=== PATIENT | female | born 1940 | race Caucasian/White ===

== ENCOUNTER 2018-06-12 10:26 | Inpatient (IN) ==
[2018-06-12 11:11] LABS: Basophils % 0.5 % (0.1-2.0); Eosinophils # 0.1 K/mm3 (0.0-0.4); Eosinophils % 1.4 % (0.1-12.0); Lymphocytes % 18.7 % (10-50); Mean Corpuscular HGB Conc 30.9 g/dL (31.8-35.4); Mean Corpuscular Hemoglobin 29.8 pg (27.0-31.2); Mean Corpuscular Volume 96.3 fl (81-99); Monocytes # 0.4 K/mm3 (0.1-1.0); Monocytes % 8.1 % (1.7-9.3); Neutrophils # 3.6 K/mm3 (1.8-7.8); Neutrophils % 71.3 % (37.0-80.0); Platelet Count 180 K/mm3 (142-424); Red Cell Distribution Width 13.4 % (11.5-17.5); White Blood Count 5.1 K/mm3 (4.8-10.8)
[2018-06-12 11:18] LABS: Hematocrit 19.3 % (37.0-47.0)
--- NOTE | 2018-06-12 11:22 | Emergency Department Note ---
ED Disposition Clinical Impression: Congestive heart failure (CHF), Varicose veins of bilateral lower extremities with other complications, Medication adverse effect, Non-compliant behavior, Anemia Disposition: Still a Patient Condition on Discharge: Fair Referrals: Abraham Redding [Primary Care Provider] - - Critical Care Critical Care Time: No Attestation: On 06/12/18, the high probability of a clinically significant, sudden or life threatening deterioration of the following system(s) required my full and direct attention, intervention and personal management. The time I documented below is in addition to time spent performing reported procedures but includes the following listed in this critical care notation. Medical Decision Making - Samuel Inquiry Pt receiving controlled substance: No Samuel was queried for this patient: No Vital Signs: 06/12/18 10:57 Temperature 99.2 F Temperature Source Oral Pulse Rate [Left Radial] 61 Respiratory Rate 20 Blood Pressure [Right Arm] 121/48 L Blood Pressure Mean [Right Arm] 72 Blood Pressure Source [Right Arm] Automatic Cuff Blood Pressure Position [Right Arm] Sitting 02 Sat by Pulse Oximetry 99 Oxygen Delivery Method Nasal Cannula Oxygen Flow Rate (LPM) 2 - Lab Data Lab Results 06/12/18 10:57: WBC 5.1, RBC 2.00 L, Hgb 6.0 L*, Hct 19.3 L*, MCV 96.3, MCH 29.8, MCHC 30.9 L, RDW 13.4, Plt Count 180, MPV 9.0, Neut % (Auto) 71.3, Lymph % (Auto) 18.7, [place] % (Auto) 8.1, Eos % (Auto) 1.4, Baso % (Auto) 0.5, Neut # (Auto) 3.6, Lymph # (Auto) 1.0, [place] # (Auto) 0.4, Eos # (Auto) 0.1, Baso # (Auto) 0.0 06/12/18 10:57: Sodium 140, Potassium 5.2 H, Chloride 105, Carbon Dioxide 31, Anion Gap 9.2, BUN 43 H, Creatinine 1.50 H, Estimated Creat Clear 43, Estimated GFR 33 L, Est GFR ( Amer) 40 L, Glucose 180 H, Calcium 8.2 L, Troponin I 0.02 06/12/18 10:57: Lactate 0.3 L 06/12/18 10:57: B-Natriuretic Peptide 366 H 06/12/18 10:57: PT 10.6, INR 1.03, APTT 28.9 Result diagrams: 06/12/18 10:57 06/12/18 10:57 Orders (Tests/Meds): ED MEDICATIONS Discontinued Medications Generic Name Dose Route Start Last Admin Trade Name Natalie PRN Reason Stop Dose Admin Furosemide 40 mg 06/12/18 11:13 06/12/18 11:16 Lasix 40mg/4ml Vial IV 06/12/18 11:14 40 mg ONCE ONE Administration ORDERS Category Date Time Status Blood Culture Stat Micro 06/12/18 10:57 Received - Radiology Data #1 Image(s): Chest Preliminary Findings: Abnormal IMPRESSION...... prominent cardiomegaly with left ventricular configuration. . No pleural effusion. No overt CHF. Coarsening markings toward lung bases most likely reflecting chronic changes.. Nothing definitely acute. Difficult to exclude a subtle infiltrate towards right lung base but favor chronic changes here. Areas of linear scarring/atelectasis along left heart border and at right costophrenic cardiophrenic angle I believe stable since a previous AP view of the chest from 03/01/2018 AP view C-spine. Medical Decision Narrative: Discussed with the family the patient's supposed to be on a low-sodium diet. Later on her hemoglobin was 6. I spoke with the on-call medical physician Dr. Ceron who agreed to admit the patient for diuresis and and blood transfusion. She remained hemodynamically neurologically stable. General Adult HPI - General Chief complaint: Shortness of Breath/Dyspnea Stated complaint: SOA, Veins on r foot bleeding out Time Seen by Provider: 06/12/18 11:00 Mode of Arrival: Family Vehicle Limitations: No Limitations Description of Symptoms (Recalled from ER Triage Doc. by RN): Pt states that she has been having some SOA, denies any cough or chest pain although when she lays down she feels SOA more with some mucus in her throat. Some concern with with bleeding on her right foot - History of Present Illness HPI narrative: 78 years old white female with history of diastolic dysfunction congestive heart failure and venous stasis. She is from [facility] and currently visiting her daughter in [facility]. She has a follow-up appointment with her primary care physician in June 2018. During the holidays she has been enjoying herself and ate a lot of salty foods and dill pickles. For the past week she has been experiencing progressive orthopnea without chest pain or palpitations. It is worse laying down and better sitting up. She had intermittent bleeding from her venous stasis. She does have lower extremity edema. Patient has controlled bleeding from the right foot varicosities. She did not take her is alerted today. Onset (ago): week(s) (one week.) Location: chest Radiation: non-radiation Severity: mild Consistency: constant Treatments prior to arrival: other (Patient is on xalerto. ) - Related Data Home Medications Medication Instructions Recorded Confirmed Albuterol Sulfate [Proair Hfa 2 puffs IH DAILY 06/12/18 06/12/18 90mcg/puff Inh] Cyanocobalamin/Folic AC/Vit B6 1 each PO DAILY 06/12/18 06/12/18 [Folbic Tablet] Desvenlafaxine [Desvenlafaxine ER] 100 mg PO DAILY 06/12/18 06/12/18 Furosemide [Furosemide 40MG tAB] 40 mg PO DAILY 06/12/18 06/12/18 Insulin Aspart [Novolog Flexpen] 100 unit SQ DAILY 06/12/18 06/12/18 Levocetirizine Dihydrochloride 5 tab PO DAILY 06/12/18 06/12/18 Losartan Potassium 25 mg PO DAILY 06/12/18 06/12/18 Metoprolol Succinate 25 mg PO DAILY 06/12/18 06/12/18 Mirtazapine [Remeron 15mg tablet] 15 mg PO DAILY 06/12/18 06/12/18 Montelukast Sodium [Montelukast 10 mg PO DAILY 06/12/18 06/12/18 10mg Tab] Pramipexole Di-HCl [Pramipexole 1.5 mg PO DAILY 06/12/18 06/12/18 Dihydrochloride] Pregabalin [Pregabalin 25mg 25 mg PO DAILY 06/12/18 06/12/18 Capsule] Rivaroxaban [Xarelto 20mg Tablet] 20 mg PO DAILY 06/12/18 06/12/18 Sitagliptin Phosphate [Januvia 100 mg PO DAILY 06/12/18 06/12/18 100mg tablet] Spironolactone 25 mg PO DAILY 06/12/18 06/12/18 buPROPion HCl [Wellbutrin SR 150mg 150 mg PO DAILY 06/12/18 06/12/18 Tablet] clonazePAM [Clonazepam] 1 mg PO DAILY 06/12/18 06/12/18 lamoTRIgine [Lamotrigine] 25 tab PO DAILY 06/12/18 06/12/18 raNITIdine HCl [Ranitidine HCl] 300 mg PO DAILY 06/12/18 06/12/18 Allergies Allergy/AdvReac Type Severity Reaction Status Date / Time hydrochlorothiazide Allergy Verified 03/01/18 19:25 Iodinated Contrast Media - Allergy Verified 03/01/18 19:25 Oral and Sulfa (Sulfonamide Allergy Verified 03/01/18 19:25 Antibiotics) [facility] History - Hepatitis A Screen Drug use history?: No High risk sexual behaviors?: No History of sexually transmitted infection?: No Currently employed?: No Childcare worker?: No Do you have indoor plumbing?: Yes Do you have electricity?: Yes Attestation statement:: This patient has been screened for Hepatitis A risk factors. I have reviewed the patient's past medical history: Yes Medical History: Reports:: Anxiety, Congestive Heart Failure, Depression, Diabetes Mellitus Type 2, Gastroesophageal Reflux Disease(GERD), Hyperlipidemia, Hypertension Denies:: Cancer, Diabetes Mellitus Type 1, MRSA Other Medical History: Reports: Other (neuropathy, allergies) Laterality Cases: Right: Arthroscopy Knee Other Surgeries: Yes: Cholecystectomy, Hernia Repair (x2) Amputation: No Fractures: No - Social History Smoking Status: Never smoker Alcohol Intake: never - Psychiatric History Expresses thoughts of harming self/others: None Suicide Plan Description: No Plan Pschychiatric History:: Reports:: Anxiety, Depression ROS Obtained: Yes All systems reviewed & no additional complaints Physical Exam - General General appearance: alert, in no apparent distress - Head Head exam: atraumatic, normocephalic, normal inspection - Eye Eye exam: Present: normal appearance, PERRL, EOMI. Absent: scleral icterus, nystagmus - ENT ENT exam: Present: normal exam, normal oropharynx, mucous membranes moist, TM's normal bilaterally, normal external ear exam - Neck Neck exam: Present: normal inspection, full ROM, trachea midline. Absent: tenderness, meningismus, lymphadenopathy - Chest Chest inspection: Present: normal inspection, symmetric chest wall rise. Absen t: tenderness - Respiratory Respiratory exam: Present: normal lung sounds bilaterally. Absent: respiratory distress, wheezes - Cardiovascular Cardiovascular exam: Present: regular rate, normal rhythm, normal heart sounds. Absent: JVD - Abdominal Exam Abdominal exam: Present: soft, normal bowel sounds. Absent: distention, tenderness, guarding, rebound, rigidity - External exam: Present: normal external exam - Extremities Exam Extremities exam: Present: normal inspection, full ROM, normal capillary refill, pedal edema (1+ edema of the lower extremity extensive varicosities on the dorsum of the feet.), other (Extensive varicosities in the dorsum of the right foot with controlled bleeding. ). Absent: calf tenderness - Back Exam Back exam: Present: normal inspection. Absent: tenderness, CVA tenderness (R), CVA tenderness (L), paraspinal tenderness, vertebral tenderness - Neurological Exam Neurological exam: Present: alert, oriented X3, CN II-XII intact, motor sensory deficit, reflexes normal - Psychiatric Psychiatric exam: Present: normal affect, normal mood - Skin Skin exam: Present: warm, dry, intact, normal color - Lymphatic Lymphatic Findings: no adenopathy
[2018-06-12 11:23] LABS: Anion Gap 9.2 mEq/L (5-15); Calcium 8.2 mg/dL (8.5-10.1); Potassium 5.2 mmoL/L (3.5-5.1)
[2018-06-12 11:47] LABS: Activated Partial Thrombo Time 28.9 seconds (23.6-34.0); INR 1.03 (0.9-1.1); Prothrombin Time 10.6 seconds (9.4-11.8)
[2018-06-12 13:54] LABS: Microscopic, Urine URINE MICROSCOPIC (MICROSCOPIC)
[2018-06-12 13:55] LABS: Appearance,Urine CLEAR (Clear); Bilirubin,Urine Negative (Negative); Blood, Urine Negative (Negative); Color,Urine YELLOW (Yellow); Glucose,Urine (UA) Negative (Negative); Ketones,Urine Negative (Negative); Leukocyte Esterase,Urine Negative (Negative); PH,Urine 5.5 (5.0-8.5); Protein,Urine Negative (Negative); Specific Gravity, Urine 1.015 (1.005-1.030); Urobilinogen,Urine 0.2 EU/dl (0.2)
[2018-06-12 14:03] LABS: Bacteria,Urine Trace /lpf; Squamous Epithelial Cell,Urine Occasional #/hpf (0-5); WBC,Urine Occasional #/hpf (0-3)
--- NOTE | 2018-06-12 14:49 | History & Physical Report ---
*Admission Date: 06/12/18 *Chief complaint: symptomatic anemia *History of present illness: Ms. Suarez is an 78-year-old female with multiple comorbidities who presents with some somatic anemia and CHF exacerbation to the emergency room today. She reports for the past 3 weeks she has been having bleeding from varicosities in her right foot and has seen multiple providers previously for this. No one has intervened or offered significant therapeutic options other than compression legging that she wears for an hour a day. She is on Xarelto for heart failure and remote history of blood clots. Anemia with a hemoglobin of 6 upon arrival to the ER. Complains of shortness of breath and increased low er extremity edema that was not responsive to an increase in her baseline diuretic usage. Family is at bedside with her to give more extensive history. Follows with a primary care at [facility]. Patient denies any fevers, nausea vomiting, hematemesis or hematochezia. No history of melenic stools. Remained hemodynamically stable. [facility] History I have reviewed the patient's past medical history: Yes Medical History: Reports:: Anxiety, Congestive Heart Failure, Depression, Diabetes Mellitus Type 2, Gastroesophageal Reflux Disease(GERD), Hyperlipidemia, Hypertension Denies:: Cancer, Diabetes Mellitus Type 1, MRSA Other Medical History: Reports: Other (neuropathy, allergies) Laterality Cases: Right: Arthroscopy Knee Other Surgeries: Yes: Cholecystectomy, Hernia Repair (x2) Amputation: No Fractures: No - *Social History Smoking Status: Never smoker Alcohol Intake: never - Psychiatric History Expresses thoughts of harming self/others: None Suicide Plan Description: No Plan Pschychiatric History:: Reports:: Anxiety, Depression Review of Systems - Review of Systems Review of systems:: pertinent systems reviewed and negative unless documented below Meds Home Medications Medication Instructions Recorded Confirmed Type Albuterol Sulfate [Proair Hfa 2 puffs IH DAILY 06/12/18 06/12/18 History 90mcg/puff Inh] Cyanocobalamin/Folic AC/Vit B6 1 each PO DAILY 06/12/18 06/12/18 History [Folbic Tablet] Desvenlafaxine [Desvenlafaxine ER] 100 mg PO DAILY 06/12/18 06/12/18 History Furosemide [Furosemide 40MG tAB] 40 mg PO DAILY 06/12/18 06/12/18 History Insulin Aspart [Novolog Flexpen] 100 unit SQ DAILY 06/12/18 06/12/18 History Levocetirizine Dihydrochloride 5 tab PO DAILY 06/12/18 06/12/18 History Losartan Potassium 25 mg PO DAILY 06/12/18 06/12/18 History Metoprolol Succinate 25 mg PO DAILY 06/12/18 06/12/18 History Mirtazapine [Remeron 15mg tablet] 15 mg PO DAILY 06/12/18 06/12/18 History Montelukast Sodium [Montelukast 10 mg PO DAILY 06/12/18 06/12/18 History 10mg Tab] Pramipexole Di-HCl [Pramipexole 1.5 mg PO DAILY 06/12/18 06/12/18 History Dihydrochloride] Pregabalin [Pregabalin 25mg 175 mg PO DAILY 06/12/18 06/12/18 History Capsule] Rivaroxaban [Xarelto 20mg Tablet] 20 mg PO DAILY 06/12/18 06/12/18 History Sitagliptin Phosphate [Januvia 100 mg PO DAILY 06/12/18 06/12/18 History 100mg tablet] Spironolactone 25 mg PO DAILY 06/12/18 06/12/18 History buPROPion HCl [Wellbutrin SR 150mg 150 mg PO DAILY 06/12/18 06/12/18 History Tablet] clonazePAM [Clonazepam] 0.5 mg PO DAILY 06/12/18 06/12/18 History clonazePAM [Clonazepam] 1 mg PO HS 06/12/18 06/12/18 History lamoTRIgine [Lamotrigine] 25 tab PO DAILY 06/12/18 06/12/18 History raNITIdine HCl [Ranitidine HCl] 300 mg PO DAILY 06/12/18 06/12/18 History Allergies Allergy/AdvReac Type Severity Reaction Status Date / Time hydrochlorothiazide Allergy Verified 03/01/18 19:25 Iodinated Contrast Media - Allergy Verified 03/01/18 19:25 Oral and Sulfa (Sulfonamide Allergy Verified 03/01/18 19:25 Antibiotics) Exam Vital signs and Labs for Last 24 Hours: Temp Pulse Resp BP Pulse Ox 97.4 F L 69 18 107/50 L 97 06/12/18 14:29 06/12/18 14:29 06/12/18 14:29 06/12/18 14:29 06/12/18 14:29 Laboratory Results - last 24 hr 06/12/18 10:57: WBC 5.1, RBC 2.00 L, Hgb 6.0 L*, Hct 19.3 L*, MCV 96.3, MCH 29.8, MCHC 30.9 L, RDW 13.4, Plt Count 180, MPV 9.0, Neut % (Auto) 71.3, Lymph % (Auto) 18.7, [place] % (Auto) 8.1, Eos % (Auto) 1.4, Baso % (Auto) 0.5, Neut # (Auto) 3.6, Lymph # (Auto) 1.0, [place] # (Auto) 0.4, Eos # (Auto) 0.1, Baso # (Auto) 0.0 06/12/18 10:57: Sodium 140, Potassium 5.2 H, Chloride 105, Carbon Dioxide 31, Anion Gap 9.2, BUN 43 H, Creatinine 1.50 H, Estimated Creat Clear 43, Estimated GFR 33 L, Est GFR ( Amer) 40 L, Glucose 180 H, Calcium 8.2 L, Troponin I 0.02 06/12/18 10:57: Lactate 0.3 L 06/12/18 10:57: B-Natriuretic Peptide 366 H 06/12/18 10:57: PT 10.6, INR 1.03, APTT 28.9 06/12/18 11:33: Urine Color Yellow, Urine Appearance Clear, Urine pH 5.5, Ur Specific Flushing 1.015, Urine Protein Negative, Urine Glucose (UA) Negative, Urine Ketones Negative, Urine Blood Negative, Urine Nitrate Negative, Urine Bilirubin Negative, Urine Urobilinogen 0.2, Ur Leukocyte Esterase Negative, Urine WBC Occasional, Ur Squamous Epith Cells Occasional, Urine Bacteria Trace 06/12/18 14:02: Blood Type O Positive, Crossmatch (AHG) See Detail I & O for Last 24 hours: Intake & Output 06/09/18 06/10/18 06/11/18 06/12/18 23:59 23:59 23:59 23:59 Weight 97.522 kg - Constitutional mild distress Comments: Elderly - *Routine HEENT Exam Head: Present: normocephalic, atraumatic Eye: Present: EOMI, PERRL ENT: Present: mucous membranes moist - *Routine Neck Exam Present: supple. Absent: JVD - *Routine Respiratory Exam Absent: prolonged expiratory phase Comments: 5 bibasilar crackles, no wheeze - *Routine Cardiovascular Exam Comments: Distant heart sounds, - *Routine Abdominal Exam Present: soft, normoactive bowel sounds. Absent: tenderness - *Routine Rectal Exam Patient deferred: visual exam - *Routine Exam Patient deferred: external exam - *Routine Extremities Exam Present: edema. Absent: cyanosis, clubbing Comments: Significant varicosities on dorsum of right foot. Multiple locations of ruptured varicose veins with previous bleeding now currently scabbed with fresh clot. Chronic venous stasis dermatitis changes - *Routine Skin Exam Present: intact. Absent: cyanosis, erythema - *Routine Neurological Exam Present: alert, oriented X3. Absent: altered mental status Assessment and Plan (1) Anemia Current visit: Yes Status: Acute Qualifiers: Anemia type: unspecified type Qualified Code(s): D64.9 - Anemia, unspecified Category: Medical Code(s): D64.9 - Anemia, unspecified Likely acute blood loss anemia due to bleeding. Per family patient has a history of hemochromatosis but has not had phlebotomy in quite some time Typed and crossed, transfused 2 units. Assess hemoglobin 1 hour after completion of second unit. Repeat lab work in the morning. If stable, will likely discharge home (2) Congestive heart failure (CHF) Current visit: Yes Status: Acute Category: Medical Code(s): I50.9 - Heart failure, unspecified Given diuretic in the ER. -Continue to monitor output -Oxygen as needed with goal sat greater than 92 while awake, greater than 88 while asleep (3) Varicose veins of bilateral lower extremities with other complications Current visit: Yes Status: Acute Category: Medical Code(s): I83.893 - Varicose veins of bilateral lower extremities with other complications Likely source of patient's anemia given the bleeding 5 times over the past 3 weeks from the right foot. Will place compression wraps on legs.
[2018-06-13 00:04] LABS: Hematocrit 23.7 % (37.0-47.0)
[2018-06-13 00:24] LABS: Hemoglobin 7.3 g/dL (12.2-16.2)
[2018-06-13 06:45] LABS: Basophils % 0.3 % (0.1-2.0); Eosinophils # 0.1 K/mm3 (0.0-0.4); Eosinophils % 1.5 % (0.1-12.0); Lymphocytes % 21.1 % (10-50); Mean Corpuscular HGB Conc 31.9 g/dL (31.8-35.4); Mean Corpuscular Hemoglobin 30.1 pg (27.0-31.2); Mean Corpuscular Volume 94.3 fl (81-99); Monocytes # 0.4 K/mm3 (0.1-1.0); Monocytes % 9.3 % (1.7-9.3); Neutrophils # 3.1 K/mm3 (1.8-7.8); Neutrophils % 67.8 % (37.0-80.0); Platelet Count 150 K/mm3 (142-424); Red Cell Distribution Width 13.2 % (11.5-17.5); White Blood Count 4.6 K/mm3 (4.8-10.8)
[2018-06-13 06:49] LABS: Hematocrit 22.6 % (37.0-47.0); Hemoglobin 7.2 g/dL (12.2-16.2)
[2018-06-13 06:56] LABS: Anion Gap 4.5 mEq/L (5-15); Calcium 8.2 mg/dL (8.5-10.1); Potassium 4.5 mmoL/L (3.5-5.1)
--- NOTE | 2018-06-13 13:38 | Pharmacy Consult Notes ---
[facility] Pharmacy VTE Monitoring - Patient Demographics Admission date: 06/12/18 Report Date: 06/13/18 Time: 13:38 Allergies/Adverse Reactions: Patient Allergies hydrochlorothiazide Allergy (Verified 03/01/18 19:25) Iodinated Contrast Media - Oral and Allergy (Verified 03/01/18 19:25) Sulfa (Sulfonamide Antibiotics) Allergy (Verified 03/01/18 19:25) Height: 1.63 m Weight: 98.883 kg Patient Problems: Current Active Problems Congestive heart failure (CHF) (Acute) Varicose veins of bilateral lower extremities with other complications (Acute) Medication adverse effect (Acute) Non-compliant behavior (Acute) Anemia (Acute) - VTE Risk Labs: VTE Related Lab Results Hgb 7.2 g/dL (12.2-16.2) L* 06/13/18 06:26 Hct 22.6 % (37.0-47.0) L* 06/13/18 06:26 Plt Count 150 K/mm3 (142-424) 06/13/18 06:26 PT 10.6 seconds (9.4-11.8) 06/12/18 10:57 INR 1.03 (0.9-1.1) 06/12/18 10:57 APTT 28.9 seconds (23.6-34.0) 06/12/18 10:57 BUN 36 mg/dL (7-18) H 06/13/18 06:26 Creatinine 1.37 mg/dL (0.55-1.02) H 06/13/18 06:26 Estimated Creat Clear 51 mL/min (50-200) 06/13/18 06:26 Was VTE Risk Assessment Performed: Yes VTE Score: 4 VTE Risk Level: Low Risk - Prophylaxis VTE Prophylaxis Ordered?: Yes Types of VTE Prophylaxis: TEDS Knee High Location of Applied Device: Bilateral Lower Extremeties
--- NOTE | 2018-06-13 14:00 | Discharge Summary ---
General - General Admission date:: 06/12/18 Discharge date: 06/13/18 HPI HPI: Ms. Suarez is an 78-year-old female with multiple comorbidities who presents with some somatic anemia and CHF exacerbation to the emergency room today. She reports for the past 3 weeks she has been having bleeding from varicosities in her right foot and has seen multiple providers previously for this. No one has intervened or offered significant therapeutic options other than compression legging that she wears for an hour a day. She is on Xarelto for heart failure and remote history of blood clots. Anemia with a hemoglobin of 6 upon arrival to the ER. Complains of shortness of breath and increased lower extremity edema that was not responsive to an increase in her baseline diuretic usage. Family is at bedside with her to give more extensive history. Follows with a primary care at [facility]. Patient denies any fevers, nausea vomiting, hematemesis or hematochezia. No history of melenic stools. Remained hemodynamically stable. Hospital Course Hospital Course: Patient admitted due to symptomatic anemia from blood loss in her foot and CHF exacerbation. Treated with diuretics and had brisk diuresis and was -2.5 L during her hospitalization. Additionally held her Xarelto with cessation of further bleeding from her foot. Compression wraps were placed on bilateral feet to help decrease risk for further bleeding from her varicosities. Due to her anemia of 6, patient was transfused 3 units over the course of her stay. She responded well with a hemoglobin greater than 8 at time of discharge. Additionally patient was noted to have lower blood pressures with systolics in the 90s after taking her losartan. This was stopped at discharge due to concern for it causing hypotension. Recommend patient discuss with her primary care the use of a daily baby aspirin as primary prophylaxis for blood clots or heart failure as it is actually unclear the initial reason her Xarelto was started. However in the setting of significant blood loss likely due to her varicosities and Xarelto use, the risk of use outweighs the benefit it would provide in an 78-year-old individual. Patient remained hemodynamically stable at baseline oxygen. Stable for discharge home with plan to follow-up later this week with her primary care already scheduled Objective Vital signs: Temp Pulse Resp BP Pulse Ox 8.0 F L 69 16 93/53 L 96 06/13/18 13:40 06/13/18 13:40 06/13/18 13:40 06/13/18 13:40 06/13/18 13:40 Narrative: - Constitutional No acute distress, Elderly - *Routine HEENT Exam Head: Present: normocephalic, atraumatic Eye: Present: EOMI, PERRL ENT: Present: mucous membranes moist - *Routine Neck Exam Present: supple. Absent: JVD - *Routine Respiratory Exam Absent: prolonged expiratory phase Comments: 5 bibasilar crackles, no wheeze - *Routine Cardiovascular Exam Comments: Distant heart sounds, - *Routine Abdominal Exam Present: soft, normoactive bowel sounds. Absent: tenderness - *Routine Rectal Exam Patient deferred: visual exam - *Routine Exam Patient deferred: external exam - *Routine Extremities Exam Present: edema. Absent: cyanosis, clubbing Comments: Significant varicosities on dorsum of right foot. Multiple locations of ruptured varicose veins with previous bleeding now currently scabbed. Chronic venous stasis dermatitis changes - *Routine Skin Exam Present: intact. Absent: cyanosis, erythema - *Routine Neurological Exam Present: alert, oriented X3. Absent: altered mental status Results Labs on day of discharge: Labs from last 24 hours 06/13/18 06/13/18 06/13/18 11:53 06:26 06:26 WBC 4.6 L RBC 2.40 L Hgb 7.2 L* Hct 22.6 L* MCV 94.3 MCH 30.1 MCHC 31.9 RDW 13.2 Plt Count 150 MPV 9.0 Neut % (Auto) 67.8 Lymph % (Auto) 21.1 Stanley % (Auto) 9.3 Eos % (Auto) 1.5 Baso % (Auto) 0.3 Neut # (Auto) 3.1 Lymph # (Auto) 1.0 Stanley # (Auto) 0.4 Eos # (Auto) 0.1 Baso # (Auto) 0.0 Sodium 140 Potassium 4.5 Chloride 104 Carbon Dioxide 36 H Anion Gap 4.5 L BUN 36 H Creatinine 1.37 H Estimated Creat Clear 51 Estimated GFR 37 L Est GFR ( Amer) 45 L Glucose 120 H D POC Glucose 204 H Calcium 8.2 L Troponin I Urine Color Urine Appearance Urine pH Ur Specific [place] Urine Protein Urine Glucose (UA) Urine Ketones Urine Blood Urine Nitrate Urine Bilirubin Urine Urobilinogen Ur Leukocyte Esterase Urine WBC Ur Squamous Epith Cells Urine Bacteria Blood Type Blood Type Confirm Antibody Screen Crossmatch ([facility]) 06/13/18 06/12/18 06/12/18 05:19 23:50 20:29 WBC RBC Hgb 7.3 L* D Hct 23.7 L* MCV MCH MCHC RDW Plt Count MPV Neut % (Auto) Lymph % (Auto) Stanley % (Auto) Eos % (Auto) Baso % (Auto) Neut # (Auto) Lymph # (Auto) Stanley # (Auto) Eos # (Auto) Baso # (Auto) Sodium Potassium Chloride Carbon Dioxide Anion Gap BUN Creatinine Estimated Creat Clear Estimated GFR Est GFR ( Amer) Glucose POC Glucose 135 H 357 H* Calcium Troponin I Urine Color Urine Appearance Urine pH Ur Specific [place] Urine Protein Urine Glucose (UA) Urine Ketones Urine Blood Urine Nitrate Urine Bilirubin Urine Urobilinogen Ur Leukocyte Esterase Urine WBC Ur Squamous Epith Cells Urine Bacteria Blood Type Blood Type Confirm Antibody Screen Crossmatch ([facility]) 06/12/18 06/12/18 06/12/18 18:55 16:27 15:18 WBC RBC Hgb Hct MCV MCH MCHC RDW Plt Count MPV Neut % (Auto) Lymph % (Auto) Stanley % (Auto) Eos % (Auto) Baso % (Auto) Neut # (Auto) Lymph # (Auto) Stanley # (Auto) Eos # (Auto) Baso # (Auto) Sodium Potassium Chloride Carbon Dioxide Anion Gap BUN Creatinine Estimated Creat Clear Estimated GFR Est GFR ( Amer) Glucose POC Glucose 275 H Calcium Troponin I < 0.02 < 0.02 Urine Color Urine Appearance Urine pH Ur Specific [place] Urine Protein Urine Glucose (UA) Urine Ketones Urine Blood Urine Nitrate Urine Bilirubin Urine Urobilinogen Ur Leukocyte Esterase Urine WBC Ur Squamous Epith Cells Urine Bacteria Blood Type Blood Type Confirm Antibody Screen Crossmatch ([facility]) 06/12/18 06/12/18 06/12/18 14:33 14:02 11:33 WBC RBC Hgb Hct MCV MCH MCHC RDW Plt Count MPV Neut % (Auto) Lymph % (Auto) Stanley % (Auto) Eos % (Auto) Baso % (Auto) Neut # (Auto) Lymph # (Auto) Stanley # (Auto) Eos # (Auto) Baso # (Auto) Sodium Potassium Chloride Carbon Dioxide Anion Gap BUN Creatinine Estimated Creat Clear Estimated GFR Est GFR ( Amer) Glucose POC Glucose Calcium Troponin I Urine Color Yellow Urine Appearance Clear Urine pH 5.5 Ur Specific [place] 1.015 Urine Protein Negative Urine Glucose (UA) Negative Urine Ketones Negative Urine Blood Negative Urine Nitrate Negative Urine Bilirubin Negative Urine Urobilinogen 0.2 Ur Leukocyte Esterase Negative Urine WBC Occasional Ur Squamous Epith Cells Occasional Urine Bacteria Trace Blood Type O Positive Blood Type Confirm O Positive Antibody Screen Negative Crossmatch ([facility]) See Detail DS: Diagnosis - Discharge Diagnosis (1) Anemia Status: Acute Problem details: Acute due to blood loss. Patient's [id number]- VASc score of 7, stroke risk 11-15% per year. However she does not have a history that we know of of atrial fibrillation. HAS-BLED of 2, 4% giving moderate risk of major bleed, as evidenced by significant blood loss from her varicosities in her feet. In the setting that her varicosities are inoperable and causing such blood loss, no reported history of atrial fibrillation, do not feel anticoagulation with Xarelto outweighs the risk. 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 (2) Congestive heart failure (CHF) Status: Acute Problem details: Continued home treatment, held ARB in the setting of hypotension documented after its administration (3) Varicose veins of bilateral lower extremities with other complications Status: Acute Problem details: Likely source of patient's bleeding and anemia Discharge Plan - Patient Discharge Instructions ACTIVITY: Continue current activity DIET: continue same diet Patient Instructions: Anemia, DI for Heart Failure, DI for Varicose Veins - Follow up Plan Follow up with: Provider,Referral, [Referring] - Disposition: Home, Self-Correction Medications: Home Medications Medication Instructions Recorded Confirmed Type Albuterol Sulfate [Proair Hfa 2 puffs IH Q4-6H PRN 06/12/18 06/12/18 History 90mcg/puff Inh] Cyanocobalamin/Folic AC/Vit B6 1 each PO DAILY 06/12/18 06/12/18 History [Folbic Tablet] Furosemide [Furosemide 40MG tAB] 40 mg PO DAILY 06/12/18 06/12/18 History Insulin Aspart [Novolog Flexpen] 100 unit SQ DAILY 06/12/18 06/12/18 History Levocetirizine Dihydrochloride 5 mg PO DAILY 06/12/18 06/12/18 History Losartan Potassium 25 mg PO DAILY 06/12/18 06/12/18 History Metoprolol Succinate 25 mg PO DAILY 06/12/18 06/12/18 History Mirtazapine [Remeron 15mg tablet] 15 mg PO DAILY 06/12/18 06/12/18 History Montelukast Sodium [Montelukast 10 mg PO DAILY 06/12/18 06/12/18 History 10mg Tab] Pramipexole Di-HCl [Pramipexole 1.5 mg PO DAILY 06/12/18 06/12/18 History Dihydrochloride] Pregabalin [Pregabalin 25mg 175 mg PO DAILY 06/12/18 06/12/18 History Capsule] Rivaroxaban [Xarelto 20mg Tablet] 20 mg PO DAILY 06/12/18 06/12/18 History Sitagliptin Phosphate [Januvia 100 mg PO DAILY 06/12/18 06/12/18 History 100mg tablet] Spironolactone 25 mg PO DAILY 06/12/18 06/12/18 History buPROPion HCl [Wellbutrin SR 150mg 150 mg PO DAILY 06/12/18 06/12/18 History Tablet] clonazePAM [Clonazepam] 0.5 mg PO DAILY 06/12/18 06/12/18 History clonazePAM [Clonazepam] 1 mg PO HS 06/12/18 06/12/18 History lamoTRIgine [Lamotrigine] 25 mg PO DAILY 06/12/18 06/12/18 History raNITIdine HCl [Ranitidine HCl] 300 mg PO DAILY 06/12/18 06/12/18 History Prescriptions/Medication Reconciliation: Continue Sitagliptin Phosphate [Januvia 100mg tablet] 100 mg PO DAILY raNITIdine HCl [Ranitidine HCl] 300 mg PO DAILY Pregabalin [Pregabalin 25mg Capsule] 175 mg PO DAILY Pramipexole Di-HCl [Pramipexole Dihydrochloride] 1.5 mg PO DAILY Montelukast Sodium [Montelukast 10mg Tab] 10 mg PO DAILY Mirtazapine [Remeron 15mg tablet] 15 mg PO DAILY Metoprolol Succinate 25 mg PO DAILY Levocetirizine Dihydrochloride 5 mg PO DAILY lamoTRIgine [Lamotrigine] 25 mg PO DAILY Insulin Aspart [Novolog Flexpen] 100 unit SQ DAILY clonazePAM [Clonazepam] 0.5 mg PO DAILY buPROPion HCl [Wellbutrin SR 150mg Tablet] 150 mg PO DAILY Albuterol Sulfate [Proair Hfa 90mcg/puff Inh] 2 puffs IH Q4-6H PRN PRN Reason: Shortness Of Breath Furosemide [Furosemide 40MG tAB] 40 mg PO DAILY Spironolactone 25 mg PO DAILY Cyanocobalamin/Folic AC/Vit B6 [Folbic Tablet] 1 each PO DAILY clonazePAM [Clonazepam] 1 mg PO HS Discontinued Rivaroxaban [Xarelto 20mg Tablet] 20 mg PO DAILY Losartan Potassium 25 mg PO DAILY
[2018-06-13 15:06] LABS: Hemoglobin 8.8 g/dL (12.2-16.2)
[2018-06-13 15:07] LABS: Hematocrit 27.2 % (37.0-47.0)
== END 2018-06-13 16:59 | disposition home or self-care (01) | DRG 299 ==
LOC: ER 10:26 → 2ND 10:26 → OBSVTOIN 13:12 → 2ND 13:57
PROVIDERS: ADMIT Internal Medicine Adolescent Medicine; ATTEND Internal Medicine Adolescent Medicine
CPT/HCPCS: 36415; 71010; 71045; 80048; 81001; 82962; 83605; 83880; 84484; 85014; 85018; 85025; 85610; 85730; 86850; 87040; 96374; 99284; P9016

== ENCOUNTER 2020-02-20 21:55 | Emergency (ER) | payer MEDICARE, OTHER, SELFPAY ==
[2020-02-20 21:56] VITALS: BP 113/50; PULSE 58; RESP 16; TEMP 36.9; O2SAT 96; BMI 35.6
--- NOTE | 2020-02-20 22:45 | HMH.EDGENADL ---
ED Disposition Clinical Impression: Adverse reaction to drug Qualifiers: Encounter type: initial encounter Qualified Code(s): T50.905A - Adverse effect of unspecified drugs, medicaments and biological substances, initial encounter Disposition: Home, Self-Care Condition on Discharge: Good Instructions: DI for Rash Additional Instructions: Follow-up with your primary care doctor in the next 48 to 72 hours to reassess your rash and symptoms. Continue taking your on antibiotics that was prescribed to you. Please get a BMP with your primary care doctor to assess for your kidney function. Return if symptoms worsen, you develop a fever, or have any other questions or concerns regarding your condition. Prescriptions: Hydrocortisone [Hydrocortisone 1% Cream 30gm Tube] 2 gm TP BID 7 Days #28.4 tube Prescription Printed Referrals: Abraham Redding [Primary Care Provider] - Octavia Monroy MD [Referring] - - Critical Care Critical Care Time: No Attestation: On 02/20/20, the high probability of a clinically significant, sudden or life threatening deterioration of the following system(s) required my full and direct attention, intervention and personal management. The time I documented below is in addition to time spent performing reported procedures but includes the following listed in this critical care notation. Medical Decision Making - Samuel Inquiry Pt receiving controlled substance: No Vital Signs: 02/20/20 21:56 02/20/20 22:56 Temperature 98.4 F Temperature Source Oral Pulse Rate [Left Radial] 58 L 56 L Respiratory Rate 16 16 Blood Pressure [Right Arm] 113/50 L 130/54 L Blood Pressure Mean [Right Arm] 71 79 Blood Pressure Source [Right Arm] Automatic Cuff Automatic Cuff Blood Pressure Position [Right Arm] Sitting Sitting 02 Sat by Pulse Oximetry 96 96 Oxygen Delivery Method Nasal Cannula Nasal Cannula Oxygen Flow Rate (LPM) 2 2 - Lab Data Lab Results 02/20/20 23:02: WBC 5.6, RBC 3.82 L, Hgb 11.0 L, Hct 34.4 L, MCV 89.9, MCH 28.8, MCHC 32.0, RDW 16.7, Plt Count 161, MPV 9.9, Neut % (Auto) 63.6, Lymph % (Auto) 14.8, Stark % (Auto) 9.8 H, Eos % (Auto) 11.1, Baso % (Auto) 0.7, Neut # (Auto) 3.6, Lymph # (Auto) 0.8, Stark # (Auto) 0.6, Eos # (Auto) 0.6 H, Baso # (Auto) 0.0, ESR 80 H 02/20/20 23:02: PT 13.6 H, INR 1.35 H 02/20/20 23:02: Sodium 138, Potassium 3.7, Chloride 89 L, Carbon Dioxide 41 H*, Anion Gap 11.7, BUN 60 H, Creatinine 1.90 H, Estimated Creat Clear 32, Estimated GFR 25 L, Est GFR ( Amer) 31 L, Glucose 133 H, Calcium 8.8, Total Bilirubin 0.3, AST 37 H, ALT 19, Alkaline Phosphatase 118, C-Reactive Protein 39.7 H, Total Protein 6.4, Albumin 3.4 L, Globulin 3.0, Albumin/Globulin Ratio 1.1 Result diagrams: 02/20/20 23:02 02/20/20 23:02 Orders (Tests/Meds): ED MEDICATIONS Discontinued Medications Generic Name Dose Route Start Last Admin Trade Name Natalie PRN Reason Stop Dose Admin Diphenhydramine HCl 50 mg 02/20/20 22:42 02/20/20 23:19 Diphenhydramine 50mg Capsule PO 02/20/20 22:43 50 mg ONCE ONE Administration Medical Decision Narrative: Pt presents for rash. Overall, pt appears stable and nontoxic. Pt does not have any fever, pain, immunosuppression, mucosal lesions, or vital sign instability including hypotension. On physical exam does not have nikolsky sign positive, petechiae, pulmonary findings. Low concern for toxic epidermal necrolysis, chaz maximo syndrome, dress syndrome, acute generalized exanthematous pustulosis. This patient presents with symptoms consistent with acute hypersensitivity reaction, likely acute allergic reaction. Presentation not consistent with acute anaphylaxis (lack of pulmonary, dermatologic, cardiovascular or GI symptoms, lack of hypotension or exposure to known allergen), angioedema, serum sickness (lacks fevers, arthralgias), ingestion of preformed toxin. No evidence of airway compromise or shock at this time. Plan to treat for an allergi
[2020-02-20 22:56] VITALS: BP 130/54; PULSE 56; RESP 16; O2SAT 96
[2020-02-20 23:07] LABS: Basophils % 0.7 % (0.1-2.0); Eosinophils # 0.6 K/mm3 (0.0-0.4); Eosinophils % 11.1 % (0.1-12.0); Hematocrit 34.4 % (37.0-47.0); Lymphocytes # 0.8 K/mm3 (0.7-4.5); Lymphocytes % 14.8 % (10-50); Mean Corpuscular Hemoglobin 28.8 pg (27.0-31.2); Mean Corpuscular Volume 89.9 fl (81-99); Mean Platelet Volume 9.9 fl (7.4-10.4); Monocytes # 0.6 K/mm3 (0.1-1.0); Monocytes % 9.8 % (1.7-9.3); Neutrophils # 3.6 K/mm3 (1.8-7.8); Neutrophils % 63.6 % (37.0-80.0); Platelet Count 161 K/mm3 (142-424); Red Blood Count 3.82 M/mm3 (4.20-5.40); Red Cell Distribution Width 16.7 % (11.5-17.5); White Blood Count 5.6 K/mm3 (4.8-10.8)
[2020-02-20 23:13] LABS: Chloride 89 mmol/L (98-107); Potassium 3.7 mmoL/L (3.5-5.1); Sodium 138 mmol/L (136-145)
[2020-02-20 23:16] LABS: Alanine Aminotransferase 19 U/L (12-78); Albumin Level 3.4 g/dl (3.5-5.0); Albumin/Globulin Ratio 1.1 (1.1-1.8); Alkaline Phosphatase 118 U/L (38-126); Aspartate Amino Transferase 37 U/L (14-36); Bilirubin,Total 0.3 mg/dl (0.2-1.3); Blood Urea Nitrogen 60 mg/dl (7-17); Creatinine Clearance Estimated 32 mL/min (50-200); Estimated Glomerular Filt Rate 25 ml/min (>60); GFR (African American) 31 ML/MIN (>60); Total Protein,Serum 6.4 g/dl (6.3-8.2)
[2020-02-20 23:17] LABS: Calcium 8.8 mg/dl (8.4-10.2); Glucose 133 mg/dl (74-100)
[2020-02-20 23:22] LABS: C-Reactive Protein 39.7 mg/L (0-4)
[2020-02-20 23:24] LABS: Anion Gap 11.7 mEq/L (5-15)
[2020-02-20 23:25] LABS: Carbon Dioxide 41 mmol/L (22.0-30.0)
[2020-02-20 23:32] LABS: INR 1.35 (0.9-1.1); Prothrombin Time 13.6 seconds (9.4-11.8)
[2020-02-20 23:41] LABS: Erythrocyte Sedimentation Rate 80 mm/hr (0-30)
[2020-02-21] VITALS: BP 121/51; PULSE 71; RESP 16; O2SAT 96
[2020-02-21 00:24] VITALS: BP 125/56; PULSE 64; RESP 16; TEMP 36.8; O2SAT 97
== END 2020-02-21 00:41 | disposition home or self-care (01) ==
PROVIDERS: Emergency Provider Emergency Medicine; PCP Family Medicine
DX: L27.0 Generalized skin eruption due to drugs and medicaments taken internally (principal); T36.4X5A Adverse effect of tetracyclines, initial encounter; Y92.019 Unspecified place in single-family (private) house as the place of occurrence of the external cause; I10 Essential (primary) hypertension; E11.9 Type 2 diabetes mellitus without complications; K21.9 Gastro-esophageal reflux disease without esophagitis; E78.5 Hyperlipidemia, unspecified; F41.8 Other specified anxiety disorders; Z79.899 Other long term (current) drug therapy; Z88.2 Allergy status to sulfonamides; Z90.49 Acquired absence of other specified parts of digestive tract
CPT/HCPCS: 80053; 85025; 85610; 85651; 86140; 99283

== ENCOUNTER 2020-06-04 15:28 | Emergency (ER) | payer MEDICARE, OTHER, SELFPAY ==
[2020-06-04 15:28] VITALS: BP 110/48; PULSE 59; RESP 18; TEMP 36.6; O2SAT 92; BMI 32.5
--- NOTE | 2020-06-04 15:31 | HMH.EDSOB ---
ED Disposition Clinical Impression: Pulmonary hypertension associated with chronic renal failure on dialysis CHF exacerbation Qualifiers: Heart failure type: diastolic Qualified Code(s): I50.33 - Acute on chronic diastolic (congestive) heart failure Disposition: Xfer Short-Term Hosp Condition on Discharge: Good Referrals: Abraham Redding [Primary Care Provider] - Forms: Transfer Record - ED - Critical Care Critical Care Time: No Attestation: On , the high probability of a clinically significant, sudden or life threatening deterioration of the following system(s) required my full and direct attention, intervention and personal management. The time I documented below is in addition to time spent performing reported procedures but includes the following listed in this critical care notation. Medical Decision Making - Medical Records Medical records reviewed: Yes: I reviewed the patient's medical records. MR Comment: Patient has a history of heart failure on multiple diuretics with an elevated BUN and creatinine during only recent visit here to [facility]. - Samuel Inquiry Pt receiving controlled substance: No Vital Signs: 06/04/20 15:28 06/04/20 16:38 06/04/20 17:15 Temperature 97.8 F Temperature Source Oral Pulse Rate [Left Radial] 59 L 52 L 72 Respiratory Rate 18 24 20 Blood Pressure [Left Arm] 110/48 L 105/48 L 111/68 Blood Pressure Mean [Left Arm] 68 67 82 Blood Pressure Source [Left Arm] Automatic Cuff Automatic Cuff Automatic Cuff Blood Pressure Position [Left Arm] Sitting Sitting Sitting 02 Sat by Pulse Oximetry 92 L 90 L 92 L Oxygen Delivery Method Nasal Cannula Oxygen Flow Rate (LPM) 2 - Lab Data Lab Results 06/04/20 16:05: WBC 6.1, RBC 3.72 L, Hgb 10.3 L, Hct 34.3 L, MCV 92.3, MCH 27.7, MCHC 30.0 L, RDW 16.0, Plt Count 201, MPV 9.3, Neut % (Auto) 73.1, Lymph % (Auto) 13.2, [place] % (Auto) 7.3, Eos % (Auto) 5.7, Baso % (Auto) 0.7, Neut # (Auto) 4.5, Lymph # (Auto) 0.8, [place] # (Auto) 0.5, Eos # (Auto) 0.4, Baso # (Auto) 0.0 06/04/20 16:05: Sodium 139, Potassium 4.0, Chloride 88 L, Carbon Dioxide 42 H*, Anion Gap 13.0, BUN 76 H, Creatinine 2.00 H, Estimated Creat Clear 30, Estimated GFR 24 L, Est GFR ( Amer) 29 L, Glucose 162 H, Calcium 9.3, Total Bilirubin 0.3, AST 29, ALT 18, Alkaline Phosphatase 105, Troponin I 0.03, Total Protein 6.8, Albumin 3.6, Globulin 3.2, Albumin/Globulin Ratio 1.1 06/04/20 16:05: NT-Pro-B Natriuret Pep 6520 H Result diagrams: 06/04/20 16:05 06/04/20 16:05 Orders (Tests/Meds): ED MEDICATIONS Discontinued Medications Generic Name Dose Route Start Last Admin Trade Name Freq PRN Reason Stop Dose Admin Albuterol Sulfate 2 puffs 06/04/20 15:35 06/04/20 16:30 Albuterol-Hfa 90mcg/Puff Inhaler 8gm IH 06/04/20 15:36 2 puffs ONCE ONE Administration Methylprednisolone Sodium Succinate 125 mg 06/04/20 15:37 06/04/20 16:33 Methylprednisolone Sod Succ 125mg Vial IV 06/04/20 15:38 125 mg ONCE ONE Administration Miscellaneous 1 unit 06/04/20 15:35 06/04/20 16:30 Aerochamber/Optihaler MC 06/04/20 15:36 1 unit ONCE ONE Administration ORDERS Category Date Time Status Chest XR -- portable [XR chest portable] Stat Exams 06/04/20 15:32 Taken Troponin I Q3H Lab 06/04/20 18:45 Ordered Troponin I Q3H Lab 06/04/20 21:45 Ordered VBG [Venous Blood Gas] Stat RT 06/04/20 17:17 Ordered - Radiology Data #1 Image(s): Chest Image Reviewed: Yes I reviewed the patient's radiology image Preliminary Findings: Abnormal (Diffuse pulmonary edema with left-sided pleural effusion) Medical Decision Narrative: 80-year-old female with a history of diastolic heart failure and pulmonary hypertension who presents with shortness of breath intermittent confusion and decreased urine output. On initial presentation the patient's oxygen saturations are in the low to mid 90s on 2 L which is her baseline. She appears tired and fatigu
--- NOTE | 2020-06-04 15:32 | XR_ITS ---
PROCEDURE: XR CHEST PORTABLE CLINICAL HISTORY: dyspnea COMPARISON: CR [id number] XR chest portable from 06/12/2018 FINDINGS: The patient's chin obscures the right apex. There is cardiomegaly with mild pulmonary venous congestion. There is increased density in the left midlung along left heart border and may be due to an area atelectasis or infiltrate. There are severe degenerative changes right shoulder with flattening of the humeral head IMPRESSION: Mild CHF with left midlung atelectasis or infiltrate Dictated by: Neri Hamilton MD 06/04/2020 22:28 Neri Hamilton MD in [place] 06/04/2020 22:28
--- NOTE | 2020-06-04 15:33 | CA_ITS ---
APPROVED REPORT Bilateral Lower Extremity Venous Study for DVT. Supply Chain Planner: MURALI Indications Lower Extremity Edema: Bilateral Lower Extremity Swelling: Bilateral bilateral purpura hx of clots Risk Factors Prior Phlebitis/DVT Medications Patient takes Xarelto daily. Vein Imaging CFV (R): compressive, spontaneous, phasic, augmentation FEM (R): compressive, spontaneous, phasic, augmentation POP (R): compressive, spontaneous, phasic, augmentation PTV (R): Compressible GSV (R): Partially Compressible Peroneals (R):Compressible GAS (R): Compressible CFV (L): compressive, spontaneous, phasic, augmentation FEM (L): compressive, spontaneous, phasic, augmentation POP (L): compressive, spontaneous, phasic, augmentation PTV (L): Compressible GSV (L): Partially Compressible Peroneals (L):Compressible GAS (L): Compressible Findings No evidence of DVT in the veins scanned of the right lower extremity. No evidence of DVT in the veins scanned of the left lower extremity. Superficial Thrombophlebitis is seen in veins of the calf in bilateral lower extremities Conclusion No evidence of DVT in the veins scanned of the right lower extremity. No evidence of DVT in the veins scanned of the left lower extremity. Superficial Thrombophlebitis is seen in veins of the calf in bilateral lower extremities Electronically signed by : Neri Hamilton MD 06/05/2020 17:04:30
--- NOTE | 2020-06-04 15:45 | PC.NURSE ---
rad at for portable xray notified giselle in [facility] lab of doppler order.
--- NOTE | 2020-06-04 16:01 | PC.NURSE ---
Vascular here to do US doppler
[2020-06-04 16:19] LABS: Basophils % 0.7 % (0.1-2.0); Eosinophils # 0.4 K/mm3 (0.0-0.4); Eosinophils % 5.7 % (0.1-12.0); Hematocrit 34.3 % (37.0-47.0); Hemoglobin 10.3 g/dL (12.2-16.2); Lymphocytes # 0.8 K/mm3 (0.7-4.5); Lymphocytes % 13.2 % (10-50); Mean Corpuscular Hemoglobin 27.7 pg (27.0-31.2); Mean Corpuscular Volume 92.3 fl (81-99); Mean Platelet Volume 9.3 fl (7.4-10.4); Monocytes # 0.5 K/mm3 (0.1-1.0); Monocytes % 7.3 % (1.7-9.3); Neutrophils # 4.5 K/mm3 (1.8-7.8); Neutrophils % 73.1 % (37.0-80.0); Platelet Count 201 K/mm3 (142-424); Red Blood Count 3.72 M/mm3 (4.20-5.40); White Blood Count 6.1 K/mm3 (4.8-10.8)
[2020-06-04 16:24] LABS: Chloride 88 mmol/L (98-107); Sodium 139 mmol/L (136-145)
[2020-06-04 16:27] LABS: Alanine Aminotransferase 18 U/L (12-78); Albumin Level 3.6 g/dl (3.5-5.0); Albumin/Globulin Ratio 1.1 (1.1-1.8); Alkaline Phosphatase 105 U/L (38-126); Aspartate Amino Transferase 29 U/L (14-36); Bilirubin,Total 0.3 mg/dl (0.2-1.3); Calcium 9.3 mg/dl (8.4-10.2); Creatinine Clearance Estimated 30 mL/min (50-200); Estimated Glomerular Filt Rate 24 ml/min (>60); GFR (African American) 29 ML/MIN (>60); Globulin 3.2 g/dL (1.3-3.2); Glucose 162 mg/dl (74-100); Total Protein,Serum 6.8 g/dl (6.3-8.2)
[2020-06-04 16:36] LABS: Blood Urea Nitrogen 76 mg/dl (7-17)
[2020-06-04 16:37] LABS: Carbon Dioxide 42 mmol/L (22.0-30.0); NT Pro Brain Natriuretic Pep. 6520 pg/mL (0-450)
[2020-06-04 16:38] VITALS: BP 105/48; PULSE 52; RESP 24; O2SAT 90
[2020-06-04 16:41] LABS: Troponin I 0.03 ng/ml (0.00-0.034)
[2020-06-04 17:15] VITALS: BP 111/68; PULSE 72; RESP 20; O2SAT 92
--- NOTE | 2020-06-04 17:32 | PC.NURSE ---
Dr Briggs speaking with coal handling supervisor at
--- NOTE | 2020-06-04 17:49 | PC.NURSE ---
pt accepted to ER per Dr. Crawford
[2020-06-04 18:09] VITALS: BP 110/45; PULSE 54; RESP 18; O2SAT 92
[2020-06-04 18:14] LABS: VBG Base Excess 13.4 mmol/L (-2.4-2.3); VBG HCO3 39.6 mmol/L (23-30); VBG Oxygen Saturation 92.3 % (50-70); VBG PH 7.31 mmol/L (7.31-7.41); VBG PO2 68.2 mmol/L (28-40); VBG Total CO2 42.1 mmol/L (23-27)
--- NOTE | 2020-06-04 18:15 | PC.NURSE ---
report called to Rea SantosRN at ER at this time
[2020-06-04 18:17] LABS: VBG PCO2 80.7 mmol/L (35-51)
--- NOTE | 2020-06-04 18:18 | PC.NURSE ---
notified [facility] of transfer, their other truck is out on a run, states they will be here when a truck is available.
[2020-06-04 19:02] VITALS: BP 110/50; PULSE 54; RESP 18; TEMP 36.6; O2SAT 92
== END 2020-06-04 19:05 | disposition short-term general hospital (02) ==
PROVIDERS: Emergency Provider Student in an Organized Health Care Education/Training Program; PCP Family Medicine
DX: I27.20 Pulmonary hypertension, unspecified (principal); I50.33 Acute on chronic diastolic (congestive) heart failure; N17.9 Acute kidney failure, unspecified; Z99.2 Dependence on renal dialysis; I80.03 Phlebitis and thrombophlebitis of superficial vessels of lower extremities, bilateral; F41.8 Other specified anxiety disorders; E11.9 Type 2 diabetes mellitus without complications; E78.5 Hyperlipidemia, unspecified; K21.9 Gastro-esophageal reflux disease without esophagitis; Z79.899 Other long term (current) drug therapy; Z88.2 Allergy status to sulfonamides; Z88.8 Allergy status to other drugs, medicaments and biological substances
CPT/HCPCS: 71045; 80053; 82803; 83880; 84484; 85025; 93970; 96374; 99284

== ENCOUNTER 2020-07-17 11:01 | Emergency (ER) | payer MEDICARE, OTHER, SELFPAY ==
[2020-07-17 11:02] VITALS: BP 120/42; PULSE 74; RESP 18; TEMP 37.1; O2SAT 96; BMI 36.3
--- NOTE | 2020-07-17 11:16 | HMH.EDFALL ---
ED Disposition Clinical Impression: C3 cervical fracture Qualifiers: Encounter type: initial encounter Fracture type: closed Fracture morphology: unspecified fracture morphology Fracture alignment: nondisplaced Qualified Code(s): S12.201A - Unspecified nondisplaced fracture of third cervical vertebra, initial encounter for closed fracture Fall Qualifiers: Encounter type: initial encounter Qualified Code(s): W19.XXXA - Unspecified fall, initial encounter Disposition: Home, Self-Care Condition on Discharge: Good Additional Instructions: Follow-up with orthopedic spine surgery, Dr. Castelan. You will need to call to make an appointment [phone]. Return to the emergency department if you develop any numbness, tingling, weakness in your extremities, breathing. Or if you develop any other acute new concerns, feel free to return to the emergency department for further evaluation. You will need to wear your c-collar at all times except while bathing. Referrals: Abraham Redding [Primary Care Provider] - 3 days - Critical Care Critical Care Time: No Attestation: On 07/17/20, the high probability of a clinically significant, sudden or life threatening deterioration of the following system(s) required my full and direct attention, intervention and personal management. The time I documented below is in addition to time spent performing reported procedures but includes the following listed in this critical care notation. Medical Decision Making - Medical Records Medical records reviewed: Yes: I reviewed the patient's medical records. - Samuel Inquiry Pt receiving controlled substance: No Vital Signs: 07/17/20 11:02 07/17/20 12:40 07/17/20 13:06 Temperature 98.7 F Temperature Source Oral Pulse Rate [Left Radial] 74 63 99 H Respiratory Rate 18 Blood Pressure [Right Arm] 120/42 L 139/50 L 143/61 H Blood Pressure Mean [Right Arm] 68 79 88 Blood Pressure Source [Right Arm] Automatic Cuff Automatic Cuff Automatic Cuff Blood Pressure Position [Right Arm] Sitting Sitting Sitting 02 Sat by Pulse Oximetry 96 95 94 L Oxygen Delivery Method Nasal Cannula Nasal Cannula Room Air Oxygen Flow Rate (LPM) 3 3 - CT Data CT Scan: Head, C-Spine Time Received: 13:[address] Reviewed: Yes: I have reviewed the patient's CT results Findings Narrative: Nondisplaced left C3 superior facet fracture, head CT negative Medical Decision Narrative: CT head negative and patient is neurologically intact. She does have a C3 superior facet fracture on the left which I have discussed with Dr. Capone at who advises collar, which can be removed for bathing, otherwise worn 05/01. Follow-up outpatient in 1 week with him in his clinic for repeat radiographs. Discussed with patient and daughter who are agreeable with plan and discharged home. Discussed return precautions including any new neurologic symptoms. Fall HPI - General Stated Complaint: fell 0800 two knots on head Time Seen by Provider: 07/17/20 11:16 Source of Information: Patient Limitations: No Limitations - History of Present Illness HPI Narrative: This is an 80-year-old female with a past medical history significant for hypertension, hyperlipidemia, GERD, diabetes, oxygen dependent CHF who presents to the emergency department for right-sided headache and posterior neck pain after a fall that occurred earlier this morning. She states that she was tripped when she left in the dogs as they were running around. She hit the right side of her head on a pallet. No loss of consciousness. No new numbness, tingling, weakness of her upper or lower extremities. She takes Xarelto. - Related Data Home Medications Medication Instructions Recorded Confirmed Albuterol Sulfate [Proair Hfa 2 puffs IH Q4-6H PRN 06/12/18 06/04/20 90mcg/puff Inh] Cyanocobalamin/Folic AC/Vit B6 1 each PO DAILY 06/12/18 06/04/20 [Folbic Tablet] Metoprolol Succinate 25 mg PO DAILY 06/12/18 06/04/20
--- NOTE | 2020-07-17 11:20 | CT_ITS ---
PROCEDURE: CT CERVICAL SPINE WO CON CLINICAL INDICATION: fall with post neck pain COMPARISON: No exams were available for comparison TECHNIQUE: Axial images obtained with sagittal and coronal reformats. All CT scans at the facility use one or more dose reduction, viz: automated exposure control, ma/kV adjustment per patient size (including targeted exams where dose is matched to indication, i.e. head), or iterative reconstruction technique. Axial spiral CT scanning performed of the cervical spine beginning at the base of the skull and continuing to the upper T-spine. 3-D multiplanar reconstruction with 3-D manipulation of volumetric data set in image rendering was completed by the radiologist and/or technologist with the supervision of the radiologist on independent workstation. FINDINGS: There is generalized osteopenia. Mild cervical curvature convex right. C2-C3: There is a nondisplaced fracture involving the superior facet on the left at C3. This is best detected on image number 29 series as well as series 601, image 24 and series 602, image 33. This does appear acute. C3-C4: Degenerative disc disease. C4-C5: Degenerate disc disease with facet hypertrophic change greater on the left with mild left-sided foraminal narrowing with canal stenosis 9-10 mm. C5-C6: Degenerative disc disease with 3 mm anterolisthesis of C5. Facet and uncovertebral hypertrophy is present with mild bilateral foraminal narrowing left greater than right. C6-C7: 3 mm anterolisthesis of C6 with degenerative disc disease at C6-C7. C7-T1: Degenerative disc disease. Lung apices are clear. IMPRESSION: 1. There is a nondisplaced fracture involving the superior facet on the left at C3. 2. Multilevel cervical spondylosis as detailed above. Dictated by: Neri Hamilton MD 07/17/2020 12:36 Neri Hamilton MD in [facility] 07/17/2020 12:36
--- NOTE | 2020-07-17 11:20 | CT_ITS ---
PROCEDURE: CT HEAD/BRAIN WO CON CLINICAL INDICATION: fall with post neck pain Head injury with headache/pain, contusion, abrasion or hematoma COMPARISON: No exams were available for comparison TECHNIQUE: Axial images obtained. All CT scans at the facility use one or more dose reduction, viz: automated exposure control, ma/kV adjustment per patient size (including targeted exams where dose is matched to indication, i.e. head), or iterative reconstruction technique. FINDINGS: No midline shift, mass effect, intracranial hemorrhage, hydrocephalus, or extra-axial fluid collection is evident. There is generalized atrophy with hypoattenuation of the periventricular white matter consistent with microangiopathic changes. The calvarium has an unremarkable appearance. No mastoid effusion. Small scalp hematoma is present in the right parietal region. No sinus air-fluid level. 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
--- NOTE | 2020-07-17 11:41 | PC.NURSE ---
Pt to rad.
--- NOTE | 2020-07-17 12:04 | PC.NURSE ---
pt returned from rad
--- NOTE | 2020-07-17 12:38 | PC.NURSE ---
Dr Hamilton called and spoke with Dr Hall. Pt has fx of C3. Pt's daughter has came out and asked several times for the C-Collar to be removed. Explained to daughter that we are unable to do so at this time.
[2020-07-17 12:40] VITALS: BP 139/50; PULSE 63; O2SAT 95
--- NOTE | 2020-07-17 12:45 | PC.NURSE ---
speaking Dr. Connor
--- NOTE | 2020-07-17 12:46 | PC.NURSE ---
Calling [facility] at this time
[2020-07-17 13:06] VITALS: BP 143/61; PULSE 99; O2SAT 94
--- NOTE | 2020-07-17 13:08 | PC.NURSE ---
Dr Hall speaking to at this time.
[2020-07-17 13:25] VITALS: BP 143/61; PULSE 99; RESP 18; TEMP 37.1; O2SAT 96
== END 2020-07-17 13:50 | disposition home or self-care (01) ==
PROVIDERS: Emergency Provider Emergency Medicine; PCP Family Medicine
DX: S12.201A Unspecified nondisplaced fracture of third cervical vertebra, initial encounter for closed fracture (principal); W19.XXXA Unspecified fall, initial encounter; I11.0 Hypertensive heart disease with heart failure; E78.5 Hyperlipidemia, unspecified; K21.9 Gastro-esophageal reflux disease without esophagitis; E11.9 Type 2 diabetes mellitus without complications; I50.9 Heart failure, unspecified; Z99.81 Dependence on supplemental oxygen; Z79.4 Long term (current) use of insulin; Z79.899 Other long term (current) drug therapy; Z88.2 Allergy status to sulfonamides; Z88.1 Allergy status to other antibiotic agents; Z91.041 Radiographic dye allergy status
CPT/HCPCS: 70450; 72125; 99282

== ENCOUNTER 2020-12-13 13:35 | Emergency (ER) | payer MEDICARE, OTHER, SELFPAY ==
[2020-12-13] VITALS (11 sets, daily range): BP systolic 90–122; BP diastolic 40–65; PULSE 61–79; RESP 14–32; TEMP 37–37.7; O2SAT 79–98; BMI 35.1
--- NOTE | 2020-12-13 14:02 | XR_ITS ---
PROCEDURE: XR CHEST PORTABLE CLINICAL HISTORY: sob COMPARISON: CR [id number] XR chest portable from 06/12/2018 CR XR CHEST PORTABLE from 06/04/2020 FINDINGS: There are low lung volumes. There is mild cardiomegaly with vascular crowding in the lung bases. No lobar consolidation or collapse is evident. Degenerative changes are present in the right shoulder. IMPRESSION: No acute findings. Dictated by: Neri Hamilton MD 12/13/2020 14:20 Neri Hamilton MD in [facility] 12/13/2020 14:20
--- NOTE | 2020-12-13 14:10 | HMH.EDSOB ---
ED Disposition Clinical Impression: Malar rash, Cellulitis Reactive airway disease with acute exacerbation Qualifiers: Asthma severity: moderate Disposition: Home, Self-Care Condition on Discharge: Good Instructions: DI for Shortness of Breath Additional Instructions: Continue your home therapies and take the steriod and antibiotic as instructed. Use albuterol 4 puffs as needed for shortness of breath and follow up with primary care and cardiology tomorrow. Please return with any new or worsening symptoms. Prescriptions: Cefdinir [Omnicef 300mg Capsule] 300 mg PO BID #14 cap Transmission Status: Pending to [id number] predniSONE [Prednisone 20mg Tab] 40 mg PO DAILY 4 Days #8 tab Transmission Status: Pending to [id number] Referrals: Abraham Redding [Primary Care Provider] - Time of Disposition: 17:23 - Critical Care Critical Care Time: No Attestation: On 12/13/20, the high probability of a clinically significant, sudden or life threatening deterioration of the following system(s) required my full and direct attention, intervention and personal management. The time I documented below is in addition to time spent performing reported procedures but includes the following listed in this critical care notation. Medical Decision Making - Medical Records Medical records reviewed: Yes: I reviewed the patient's medical records. - Samuel Inquiry Pt receiving controlled substance: No Vital Signs: 12/13/20 13:36 12/13/20 14:00 12/13/20 14:30 Temperature 99.8 F H Temperature Source Oral Pulse Rate 73 64 Pulse Rate [Radial] 79 Respiratory Rate 32 H 22 14 Blood Pressure 119/46 L 101/49 L Blood Pressure [Right Radial Artery] 122/51 L Blood Pressure Mean 89 67 Blood Pressure Mean [Right Radial Artery] 74 Blood Pressure Position [Right Radial Artery] Sitting 02 Sat by Pulse Oximetry 79 L 95 94 L Oxygen Delivery Method Nasal Cannula Oxygen Flow Rate (LPM) 3 12/13/20 15:00 Temperature Temperature Source Pulse Rate 62 Pulse Rate [Radial] Respiratory Rate 14 Blood Pressure 105/50 L Blood Pressure [Right Radial Artery] Blood Pressure Mean 68 Blood Pressure Mean [Right Radial Artery] Blood Pressure Position [Right Radial Artery] 02 Sat by Pulse Oximetry 95 Oxygen Delivery Method Oxygen Flow Rate (LPM) - Lab Data Lab Results 12/13/20 13:56: WBC 6.7, RBC 3.82 L, Hgb 10.6 L, Hct 35.1 L, MCV 91.8, MCH 27.8, MCHC 30.3 L, RDW 16.0, Plt Count 118 L, MPV 9.8, Neut % (Auto) 80.1 H, Lymph % (Auto) 9.7 L, [place] % (Auto) 7.5, Eos % (Auto) 2.4, Baso % (Auto) 0.4, Neut # (Auto) 5.4, Lymph # (Auto) 0.7, [place] # (Auto) 0.5, Eos # (Auto) 0.2, Baso # (Auto) 0.0 12/13/20 13:56: Sodium 140, Potassium 4.0, Chloride 87 L, Carbon Dioxide 44 H*, Anion Gap 13.0, BUN 64 H, Creatinine 1.40 H, Estimated Creat Clear 43, Estimated GFR 36 L, Est GFR ( Amer) 44 L, Glucose 238 H, Calcium 8.7, Total Bilirubin 0.6, AST 32, ALT 16, Alkaline Phosphatase 100, Troponin I 0.02, Total Protein 6.7, Albumin 4.0, Globulin 2.7, Albumin/Globulin Ratio 1.5 12/13/20 13:56: NT-Pro-B Natriuret Pep 1450 H 12/13/20 13:56: ESR 35 H 12/13/20 13:56: C-Reactive Protein 54.0 H 12/13/20 16:20: SARS-CoV-2 (PCR) Not detected, Influenza A Untype (PCR) Not detected, Influenza Type B (PCR) Not detected Result diagrams: 12/13/20 13:56 12/13/20 13:56 Orders (Tests/Meds): ED MEDICATIONS Discontinued Medications Generic Name Dose Route Start Last Admin Trade Name Freq PRN Reason Stop Dose Admin Albuterol/Ipratropium 3 ml 12/13/20 15:09 12/13/20 15:19 Ipratropium/Albuterol 3 Ml Neb IH 12/13/20 15:10 3 ml ONCE ONE Administration Methylprednisolone Sodium Succinate 125 mg 12/13/20 15:07 12/13/20 15:21 Methylprednisolone Sod Succ 125mg Vial IM 12/13/20 15:08 Not Given ONCE ONE Methylprednisolone Sodium Succinate 125 mg 12/13/20 15:20 12/13/20 15:21 Methylprednisolone Sod Succ 125mg
[2020-12-13 14:18] LABS: Basophils % 0.4 % (0.1-2.0); Eosinophils # 0.2 K/mm3 (0.0-0.4); Eosinophils % 2.4 % (0.1-12.0); Hematocrit 35.1 % (37.0-47.0); Hemoglobin 10.6 g/dL (12.2-16.2); Lymphocytes # 0.7 K/mm3 (0.7-4.5); Lymphocytes % 9.7 % (10-50); Mean Corpuscular HGB Conc 30.3 g/dL (31.8-35.4); Mean Corpuscular Hemoglobin 27.8 pg (27.0-31.2); Mean Corpuscular Volume 91.8 fl (81-99); Mean Platelet Volume 9.8 fl (7.4-10.4); Monocytes # 0.5 K/mm3 (0.1-1.0); Monocytes % 7.5 % (1.7-9.3); Neutrophils # 5.4 K/mm3 (1.8-7.8); Neutrophils % 80.1 % (37.0-80.0); Platelet Count 118 K/mm3 (142-424); Red Blood Count 3.82 M/mm3 (4.20-5.40); White Blood Count 6.7 K/mm3 (4.8-10.8)
[2020-12-13 14:33] LABS: Alanine Aminotransferase 16 U/L (12-78); Albumin/Globulin Ratio 1.5 (1.1-1.8); Alkaline Phosphatase 100 U/L (38-126); Aspartate Amino Transferase 32 U/L (14-36); Bilirubin,Total 0.6 mg/dl (0.2-1.3); Blood Urea Nitrogen 64 mg/dl (7-17); Calcium 8.7 mg/dl (8.4-10.2); Chloride 87 mmol/L (98-107); Creatinine Clearance Estimated 43 mL/min (50-200); Estimated Glomerular Filt Rate 36 ml/min (>60); GFR (African American) 44 ML/MIN (>60); Globulin 2.7 g/dL (1.3-3.2); Glucose 238 mg/dl (74-100); Sodium 140 mmol/L (136-145); Total Protein,Serum 6.7 g/dl (6.3-8.2)
[2020-12-13 14:43] LABS: NT Pro Brain Natriuretic Pep. 1450 pg/mL (0-450)
[2020-12-13 14:46] LABS: Troponin I 0.02 ng/ml (0.00-0.034)
[2020-12-13 14:47] LABS: Erythrocyte Sedimentation Rate 35 mm/hr (0-30)
--- NOTE | 2020-12-13 14:49 | ECG_ITS ---
APPROVED REPORT Exam: Resting ECG HR:64 bpm ECG Measurements Heart Rate 64 AXES NJ 160 P 71 QRSd 78 QRS -8 QT 506 T 37 QTc 522 Conclusion Normal sinus rhythm Minimal voltage criteria for LVH, may be normal variant Inferior infarct, age undetermined Anterolateral infarct, age undetermined Prolonged QT Abnormal ECG Electronically signed by : Issa Yo, 12/13/2020 17:00:00
[2020-12-13 14:54] LABS: Carbon Dioxide 44 mmol/L (22.0-30.0)
[2020-12-13 16:23] LABS: Coronavirus 19, PCR Not Detected (NotDetected); Influenza A, PCR Not Detected (NotDetected); Influenza B, PCR Not Detected (NotDetected)
--- NOTE | 2020-12-13 16:47 | PC.NURSE ---
Dr Briggs talking to Cardiology at for consult at this time.
== END 2020-12-13 19:00 | disposition home or self-care (01) ==
PROVIDERS: Emergency Provider Student in an Organized Health Care Education/Training Program; PCP Family Medicine
DX: L03.211 Cellulitis of face (principal); J45.901 Unspecified asthma with (acute) exacerbation; I50.9 Heart failure, unspecified; I27.20 Pulmonary hypertension, unspecified; K21.9 Gastro-esophageal reflux disease without esophagitis; E78.5 Hyperlipidemia, unspecified; Z79.899 Other long term (current) drug therapy
CPT/HCPCS: 71045; 80053; 83880; 84484; 85025; 85651; 86140; 93005; 99284; 99291; U0003

== ENCOUNTER 2021-02-06 14:34 | Emergency (ER) | payer MEDICARE, OTHER, SELFPAY ==
[2021-02-06 16:13] VITALS: BP 122/63; PULSE 67; RESP 18; O2SAT 96; BMI 37.0
--- NOTE | 2021-02-06 16:17 | HMH.EDUTC ---
[facility] Disposition Clinical Impression: Close exposure to COVID-19 virus Disposition: Home, Self-Care Condition on Discharge: Good Instructions: DI for COVID-19 (Suspected or Confirmed ), Coronavirus Disease 2019, Preventing the Spread of Coronavirus Discharge Instructions Additional Instructions: *Monitor Temp, Over the counter Motrin or Tylenol as directed/as needed Tylenol every 4 hours and Motrin every 6 hours (as long as your family doctor has told you that you can take it) for fever or pain. and straight to ER if unable to lower temp less than 101.0 after medication given Follow up IMMEDIATELY for new or worsening symptoms or no Noticeable improvement over the next 48-72 hours. 911 for difficulty breathing or swallowing You were tested for today for COVID19 your test result should be back in the next 24-48 hours, you may call to the [facility] to see if your test results are back in the next 48 hours [phone] [facility] hours are 9am-9pm You was given a handout with instructions for Self Quarantine and Self isolation for while you wait on test results and what to do if they are positive If you are positive the Health Dept will be contacting you also Make sure to take your Vitamins Vit. C Vit D and Zinc if you can take them Referrals: Abraham Redding [Primary Care Provider] - As needed Time of Disposition: 16:20 Medical Decision Making - Samuel Inquiry Pt receiving controlled substance: No Samuel was queried for this patient: No Vital Signs: 02/06/21 16:13 Pulse Rate [Right] 67 Respiratory Rate 18 Blood Pressure [Right Arm] 122/63 Blood Pressure Mean [Right Arm] 82 02 Sat by Pulse Oximetry 96 Oxygen Delivery Method Nasal Cannula Oxygen Flow Rate (LPM) 2 Orders (Tests/Meds): ORDERS Category Date Time Status Covid-19 Nasal PCR ([facility]) Routine Lab 02/06/21 16:06 Received [facility] HPI - General Stated complaint: covid exposure Time Seen by Provider: 02/06/21 16:18 Mode of Arrival: Ambulatory Source of Information: Patient Limitations: No Limitations Description of Symptoms (Recalled from Triage Doc. by RN): pt was directly exposed to covid 01/24. pt is asymptomatic. HEENT Symptoms (Recalled from RN notes): No Resp Symptoms (Recalled from RN notes): No Skin Symptoms (Recalled from RN notes): No MS Symptoms (Recalled from RN notes): No Functional Status (Recalled from RN notes): na - History of Present Illness Provider Complaint: Patient state that she was around family member that lives in the same house tested positive for COVID around 01/24 States that she is not having any symptoms but wanted to get tested due to medical history - Related Data Home Medications Medication Instructions Recorded Confirmed Albuterol Sulfate [Proair Hfa 2 puffs IH Q4-6H PRN 06/12/18 12/13/20 90mcg/puff Inh] Metoprolol Succinate 25 mg PO DAILY 06/12/18 12/13/20 Mirtazapine [Remeron 15mg tablet] 7.5 mg PO DAILY 06/12/18 12/13/20 Montelukast Sodium [Montelukast 10 mg PO HS 06/12/18 12/13/20 10mg Tab] Pramipexole Di-HCl [Pramipexole 1.5 mg PO DAILY 06/12/18 12/13/20 Dihydrochloride] Pregabalin [Pregabalin 25mg 300 mg PO HS 06/12/18 12/13/20 Capsule] Spironolactone [Spironolactone 25 mg PO DAILY 06/12/18 12/13/20 25mg Tablet] clonazePAM [Clonazepam] 1 mg PO HS 06/12/18 12/13/20 Bumetanide 2 mg PO BID 06/04/20 12/13/20 Desvenlafaxine [Desvenlafaxine ER] 100 mg PO DAILY 06/04/20 12/13/20 Dexlansoprazole [Dexilant] 60 mg PO DAILY 06/04/20 12/13/20 Famotidine [Acid Controller] 20 mg PO DAILY 06/04/20 12/13/20 Insulin Aspart Prot/Insuln Asp 24 units SQ DAILY 06/04/20 12/13/20 [Novolog Mix 70/30 Flexpen 100 Units/mL 3mL] Pravastatin Sodium 10 mg PO HS 06/04/20 12/13/20 Rivaroxaban [Xarelto 20mg Tablet*] 20 mg PO DAILY 06/04/20 12/13/20 Spironolactone 50 mg PO HS 06/04/20 12/13/20 metOLazone [Metolazone 5mg Tab] 5 mg PO DIRECTED PRN 06/04/20 12/13/20 Sitagliptin Phosphate [Januvia 50 mg PO DAILY 12/13/20
[2021-02-06 16:33] VITALS: BP 112/63; PULSE 67; RESP 18; TEMP 36.8
--- NOTE | 2021-02-07 09:15 | PC.NURSE ---
notified pt of positive covid test result
== END 2021-02-06 16:35 | disposition home or self-care (01) ==
PROVIDERS: Emergency Provider Nurse Practitioner; PCP Family Medicine
DX: U07.1 COVID-19 (principal); I50.9 Heart failure, unspecified; E78.5 Hyperlipidemia, unspecified; I10 Essential (primary) hypertension; K21.9 Gastro-esophageal reflux disease without esophagitis; Z88.2 Allergy status to sulfonamides
CPT/HCPCS: G0463; 99202; U0003

== ENCOUNTER 2021-02-09 08:00 | Outpatient (CLI) | payer MEDICARE, OTHER, SELFPAY ==
[2021-02-09 08:55] VITALS: BP 131/83; PULSE 79; RESP 18; TEMP 37.1; O2SAT 97
--- NOTE | 2021-02-09 09:32 | PC.NURSE ---
Pt resting comfortably with a warm blanket at this time.
[2021-02-09 10:30] VITALS: BP 134/79; PULSE 67; RESP 16; TEMP 36.9; O2SAT 97
== END 2021-02-09 10:31 | disposition home or self-care (01) ==
PROVIDERS: PCP Family Medicine
DX: U07.1 COVID-19 (principal)
CPT/HCPCS: 96365

== ENCOUNTER 2021-04-02 15:57 | Emergency (ER) | payer MEDICARE, OTHER, SELFPAY ==
--- NOTE | 2021-04-02 16:35 | XR_ITS ---
PROCEDURE INFORMATION: Exam: XR Right Wrist Exam date and time: 04/02/2021 4:35 PM Age: 81 years old Clinical indication: Pain; Hand and wrist; Right; Bilateral; Patient HX: Fall TECHNIQUE: Imaging protocol: XR Right wrist. Views: 3 or more views. Total images: 3 COMPARISON: No relevant prior studies available. FINDINGS: Bones/joints: Osteopenia. No fractures. Widening of the scapholunate interval at 4 mm, with relative flattening of the scaphoid angle on the lateral view, highly suspicious for scapholunate ligament tear. No evidence of advanced SLAC wrist. There is moderate joint space narrowing, sclerosis, and spurring at the first CMC joint and STT joint. Calcifications at the TFCC and projecting in the ventral and dorsal recesses of the radiocarpal joint which may relate to CPPD, versus small intra-articular calcific bodies. Soft tissues: There are 2 small rounded calcifications in the medial soft tissues of the distal forearm which are likely chronic posttraumatic in nature. IMPRESSION: 1. No fracture or dislocation. 2. Findings consistent with age indeterminate disruption of the scapholunate ligament, without changes of advanced SLAC wrist. 3. 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 4. Calcifications projecting in the radiocarpal joint and TFC distribution suspicious for chondrocalcinosis and CPPD
--- NOTE | 2021-04-02 16:35 | XR_ITS ---
PROCEDURE INFORMATION: Exam: XR Right Humerus Exam date and time: 04/02/2021 4:35 PM Age: 81 years old Clinical indication: Pain; Upper arm; Right; Patient HX: Fall TECHNIQUE: Imaging protocol: XR Right humerus. Views: 2 or more views. Total images: 2 COMPARISON: CR HUMGEENAT XR humerus RT 03/01/2018 8:37 PM FINDINGS: Bones/joints: Osteopenia. No acute fractures. No dislocation. 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 A 5 mm rounded ossification in the superior joint recess at the glenohumeral joint suggests a small intra-articular ossific body which may be related to osteoarthritic changes or chronic articular fragmentation. Elbow joint alignment appears grossly normal although projections at the elbow are limited. Soft tissues: No gross soft tissue abnormalities. IMPRESSION: 1. No acute findings. 2. 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 5 mm rounded chronic appearing ossification projecting in the superior joint recess consistent with small intra-articular body.
--- NOTE | 2021-04-02 16:35 | XR_ITS ---
PROCEDURE INFORMATION: Exam: XR Right Hand Exam date and time: 04/02/2021 4:35 PM Age: 81 years old Clinical indication: Pain; Hand; Bilateral; Patient HX: Fall TECHNIQUE: Imaging protocol: XR Right hand. Views: 3 or more views. Total images: 4 COMPARISON: No relevant prior studies available. FINDINGS: Bones/joints: Osteopenia. Moderate interphalangeal osteoarthritic changes. 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 No fracture. No blastic or lytic lesions. Scapholunate widening consistent with ligamentous disruption, age indeterminate. Chondrocalcinosis at the wrist suspicious for CPPD, with associated typical osteoarthritic changes in the 2nd and 3rd MCP joints. Soft tissues: Otherwise unremarkable. IMPRESSION: 1. No evidence of acute fracture or dislocation. 2. Age-indeterminate scapholunate ligament disruption without features of advanced SLAC wrist. 3. Chondrocalcinosis suggesting CPPD. 4. Moderate osteoarthritic changes.
--- NOTE | 2021-04-02 16:35 | XR_ITS ---
PROCEDURE INFORMATION: Exam: XR Right Forearm Exam date and time: 04/02/2021 4:35 PM Age: 81 years old Clinical indication: Pain; Lower or forearm; Right; Patient HX: Fall TECHNIQUE: Imaging protocol: XR Right forearm. Views: 2 views. Total images: 2 COMPARISON: No relevant prior studies available. FINDINGS: Bones/joints: Osteopenia. No fracture. Normal alignment at the elbow and wrist. 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 Small calcifications project over the volar margin of the radiocarpal joint and TFCC distribution, possibly CPPD versus small intra-articular calcific bodies. Soft tissues: 4 mm rounded calcification in the medial soft tissues of the distal forearm, chronic in appearance, probably chronic posttraumatic in nature. IMPRESSION: 1. No acute findings. 2. Osteopenia with moderate osteoarthritic changes at the wrist. 3. Calcifications at the wrist suspicious for CPPD versus intra-articular calcific bodies.
--- NOTE | 2021-04-02 16:35 | XR_ITS ---
PROCEDURE INFORMATION: Exam: XR Right Shoulder Exam date and time: 04/02/2021 4:35 PM Age: 81 years old Clinical indication: Pain; Shoulder; Right; Patient HX: Fall TECHNIQUE: Imaging protocol: XR Right shoulder. Views: 2 or more views. Total images: 3 COMPARISON: CR SHOULDCMRT XR shoulder RT min 2V 03/01/2018 8:33 PM, chest x-ray 06/04/2020 FINDINGS: Tubes, catheters and devices: Surgical clips project over the distal right upper arm. Bones/joints: Osteopenia. No acute fracture or dislocation. Chronic stage IV avascular necrosis in the right glenohumeral joint not substantially changed from 06/04/2020, with articular surface flattening, subarticular sclerosis, and advanced osteoarthritic remodeling of the glenoid. AC joint alignment normal. Visualized right ribs intact. Lungs: Visualized right lung clear, with low lung volumes. Soft tissues: Soft tissues unremarkable. IMPRESSION: 1. No acute findings. 2. Chronic stage IV avascular necrosis of the right humeral head with associated advanced osteoarthritic changes. 3. Osteopenia.
[2021-04-02 16:36] VITALS: BP 112/66; PULSE 56; RESP 18; TEMP 36.6; O2SAT 96; BMI 37.0
--- NOTE | 2021-04-02 17:12 | XR_ITS ---
PROCEDURE INFORMATION: Exam: XR Right Hip Exam date and time: 04/02/2021 5:12 PM Age: 81 years old Clinical indication: Pelvic pain; Patient HX: Fall TECHNIQUE: Imaging protocol: XR Right hip. Views: 2 or 3 views hip with pelvis when performed. Total images: 3 COMPARISON: No relevant prior studies available. FINDINGS: Bones/joints: Osteopenia. No fracture. Minor joint space narrowing in the hips. Mild osteoarthritic sclerosis in the pubic symphysis. Mild right SI joint spurring. Moderate disc degenerative changes and lateral marginal spurring L4-L5. Soft tissues: No gross soft tissue abnormalities. Vasculature: Intrapelvic phleboliths. Mild calcific atherosclerosis. IMPRESSION: No acute findings.
--- NOTE | 2021-04-02 17:33 | HMH.EDUTC ---
[facility] [place] Disposition Clinical Impression: Right arm pain Fall Qualifiers: Encounter type: initial encounter Qualified Code(s): W19.XXXA - Unspecified fall, initial encounter Disposition: Home, Self-Care Condition on Discharge: Good Instructions: DI for Elbow Pain, DI for Wrist Pain Additional Instructions: Rest the extremity, , Elevate the extremity as tolerated while you are resting. Take tylenol for pain. Follow up with Dr. Maciel (orthopedics). Sometimes there can be fractures that don't show up well on the first set of x-rays. So, you should follow up if you continue to have symptoms. I put in a referral but you need to call his office and schedule an appointment. Make sure you follow up with orthopedics regarding your hand at least. There could be a ligament or tendon injury. Follow up with your regular doctor. GO TO THE ER FOR ANY WORSENING SYMPTOMS Referrals: Abraham Redding [Primary Care Provider] - Adam Maciel MD [Staff Physician] - Time of Disposition: 18:31 Medical Decision Making - Medical Records Medical records reviewed: No: I reviewed the patient's medical records. - Samuel Inquiry Pt receiving controlled substance: No Vital Signs: 04/02/21 16:36 04/02/21 18:34 Temperature 97.9 F 97.8 F Temperature Source Temporal Artery Scan Pulse Rate 56 L Pulse Rate [Left] 56 L Respiratory Rate 18 18 Blood Pressure 112/66 Blood Pressure [Right Radial Artery] 112/66 Blood Pressure Mean [Right Radial Artery] 81 02 Sat by Pulse Oximetry 96 - Radiology Data #1 Image(s): Wrist Image Reviewed: Yes I reviewed the patient's radiology image, Yes I have reviewed radiologist's interpretation Preliminary Findings: Abnormal PROCEDURE INFORMATION: Exam: XR Right Wrist Exam date and time: 04/02/2021 4:35 PM Age: 81 years old Clinical indication: Pain; Hand and wrist; Right; Bilateral; Patient HX: Fall TECHNIQUE: Imaging protocol: XR Right wrist. Views: 3 or more views. Total images: 3 COMPARISON: No relevant prior studies available. FINDINGS: Bones/joints: Osteopenia. No fractures. Widening of the scapholunate interval at 4 mm, with relative flattening of the scaphoid angle on the lateral view, highly suspicious for scapholunate ligament tear. No evidence of advanced SLAC wrist. There is moderate joint space narrowing, sclerosis, and spurring at the first CMC joint and STT joint. Calcifications at the TFCC and projecting in the ventral and dorsal recesses of the radiocarpal joint which may relate to CPPD, versus small intra-articular calcific bodies. Soft tissues: There are 2 small rounded calcifications in the medial soft tissues of the distal forearm which are likely chronic posttraumatic in nature. IMPRESSION: 1. No fracture or dislocation. 2. Findings consistent with age indeterminate disruption of the scapholunate ligament, without changes of advanced SLAC wrist. 3. 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 4. Calcifications projecting in the radiocarpal joint and TFC distribution suspicious for chondrocalcinosis and CPPD Medical Decision Narrative: She could not tolerated an arm sling or a hand splint due to the way she sits in her wheel chair. [facility] [place] HPI - General Stated complaint: fell [id number] @home@1500 injured R arm Time Seen by Provider: 04/02/21 17:33 Mode of Arrival: Ambulatory Source of Information: Patient Limitations: No Limitations Description of Symptoms (Recalled from Triage Doc. by RN): pt fell thursday tripping over her dog. pt c/o R shoulder pain all the way down her entire arm. HEENT Symptoms (Recalled from RN notes): No Resp Symptoms (Recalled from RN notes): No Skin Symptoms (Recalled from RN notes): No MS Symptoms (Recalled from RN notes): Yes (R arm pain from the shoulder down) Functional Status (Recalled from RN notes): na
[2021-04-02 18:34] VITALS: BP 112/66; PULSE 56; RESP 18; TEMP 36.6
== END 2021-04-02 18:42 | disposition home or self-care (01) ==
PROVIDERS: Emergency Provider Nurse Practitioner Family; PCP Family Medicine
DX: M79.601 Pain in right arm (principal); W01.0XXA Fall on same level from slipping, tripping and stumbling without subsequent striking against object, initial encounter; Y92.019 Unspecified place in single-family (private) house as the place of occurrence of the external cause
CPT/HCPCS: G0463; 73030; 73060; 73090; 73110; 73130; 73502; 99202

== ENCOUNTER → 2021-05-28 16:09 | Outpatient (CLI) | payer MEDICARE, OTHER, SELFPAY ==
--- NOTE | 2021-05-28 16:30 | MR_ITS ---
PROCEDURE INFORMATION: Exam: MR Right Upper Extremity Joint Without Contrast; Shoulder Exam date and time: 05/28/2021 4:30 PM Age: 81 years old Clinical indication: Pain; Shoulder; Right; Additional info: RT shoulder pain. Fall on shoulder. Weakness and shoulder pain. Unable to raise arm above head xyrs. Symptoms x5wks. Prior x-ray 04-02-21 TECHNIQUE: Imaging protocol: MR of the Right upper extremity without contrast. Exam focused on the shoulder. COMPARISON: 1. CR XR SHOULDER RT MIN 2V 04/02/2021 5:03 PM 2. CR SHOULDCMRT XR shoulder RT min 2V 03/01/2018 8:33 PM 3. CR XR HUMERUS RT 04/02/2021 5:03 PM FINDINGS: Limitations: Motion artifact. Bones and cartilage: As seen on prior radiographs, there is significant collapse of the humeral head cortex superiorly. The MRI appearance is nonspecific, potentially being due to osteonecrosis or neuropathic arthropathy. There is marked the erosion of the glenoid resulting in retroversion. The degree of articular surface collapse would be unusual for primary osteoarthritis although this remains in the differential diagnosis. A moderate effusion involves the glenohumeral joint. An osteochondral body in the anterior superior joint measures 1 cm. The undersurface of the acromion is flat, consistent with a type I acromion. Joint spaces: A moderate effusion involves the mildly widened acromioclavicular joint. Glenoid labrum: The glenoid labrum is absent. Supraspinatus tendon: Moderate tendinosis involves the supraspinatus tendon. Infraspinatus tendon: Moderate tendinosis involves the infraspinatus tendon. Subscapularis tendon: The subscapularis tendon is poorly delineated, likely having a high-grade partial-thickness articular surface tear. Teres minor tendon: No tear or significant tendinosis involves the teres minor tendon. Tendon of biceps brachii: The long head of the biceps tendon appears grossly intact. Glenohumeral ligaments: Unremarkable. Muscles: The supraspinatus and subscapularis muscles demonstrate grade 4 (out of 4) muscle atrophy. The infraspinatus muscle demonstrates grade 3 (out of 4) muscle atrophy. Soft tissues: Unremarkable. IMPRESSION: 1. Significant collapse of the humeral head with severe erosion of the glenoid. The differential diagnosis includes neuropathic arthropathy, osteonecrosis, and primary osteoarthritis. 2. Poorly delineated subscapularis tendon likely having a high-grade partial-thickness tear. 3. Moderate tendinosis of the supraspinatus and infraspinatus tendons. 4. Severe atrophy of the supraspinatus and subscapularis muscles with moderate atrophy of the infraspinatus muscle. 5. Study significantly limited by motion artifact.
== END ==
PROVIDERS: PCP Family Medicine; Visit Provider Family Medicine
DX: M25.511 Pain in right shoulder (principal)
CPT/HCPCS: 73221

== ENCOUNTER 2021-11-13 19:24 | Emergency (ER) | payer MEDICARE, OTHER, SELFPAY ==
[2021-11-13] VITALS (8 sets, daily range): BP systolic 143–159; BP diastolic 52–67; PULSE 59–64; RESP 18; TEMP 36.8; O2SAT 94–99; BMI 33.1
--- NOTE | 2021-11-13 19:37 | CT_ITS ---
PROCEDURE INFORMATION: Exam: CT Maxillofacial Without Contrast Exam date and time: 11/13/2021 7:50 PM Age: 81 years old Clinical indication: Injury or trauma; Blunt trauma (contusions or hematomas); Ocular (eye or eyeball); Patient HX: Fall, bloodiness to right eye TECHNIQUE: Imaging protocol: Computed tomography images of the face without contrast. Radiation optimization: All CT scans at this facility use at least one of these dose optimization techniques: automated exposure control; mA and/or kV adjustment per patient size (includes targeted exams where dose is matched to clinical indication); or iterative reconstruction. COMPARISON: CT HEAD/BRAIN WO CON 11/13/2021 7:47 PM FINDINGS: Orbital cavities: Disruption of the anterolateral aspect of the right optic globe. The lens is anterior to the optic globe proper by several mm. The optic globe is filled with attenuating substance most likely hemorrhage. Bones/joints: Degenerative uncovertebral hypertrophy and facet arthropathy result in multilevel foraminal stenosis within the cervical spine. No evidence of C2 fracture on CT of the facial bones. Paranasal sinuses: Mild mucosal thickening within the paranasal sinuses. No fluid levels are evident. Soft tissues: Unremarkable. Vasculature: Calcifications of the regional arteries. Brain: Cortical atrophy and chronic periventricular microangiopathy of the brain parenchyma. Oral cavity: Torus palatinus is present. IMPRESSION: 1. Disruption of the anterolateral aspect of the right optic globe. The lens is anterior to the optic globe proper by several mm. The optic globe is filled with attenuating substance most likely hemorrhage. 2. Cortical atrophy and chronic periventricular microangiopathy of the brain parenchyma. 3. Degenerative uncovertebral hypertrophy and facet arthropathy result in multilevel foraminal stenosis within the cervical spine. 4. No evidence of C2 fracture on CT of the facial bones.
--- NOTE | 2021-11-13 19:37 | CT_ITS ---
PROCEDURE INFORMATION: Exam: CT Head Without Contrast Exam date and time: 11/13/2021 7:47 PM Age: 81 years old Clinical indication: Injury or trauma; Fall; Blunt trauma (contusions or hematomas) TECHNIQUE: Imaging protocol: Computed tomography of the head without contrast. Radiation optimization: All CT scans at this facility use at least one of these dose optimization techniques: automated exposure control; mA and/or kV adjustment per patient size (includes targeted exams where dose is matched to clinical indication); or iterative reconstruction. COMPARISON: CT HEAD/BRAIN WO CON 07/17/2020 11:46 AM FINDINGS: Brain: Patchy hypoattenuation in the periventricular deep white matter bilaterally. Cerebral ventricles: Mild enlargement of the ventricles, sulci and cisterns bilaterally. Paranasal sinuses: Mucosal thickening within the paranasal sinuses. No fluid levels are evident. Mastoid air cells: Visualized mastoid air cells are well aerated. Orbital cavities: There is disruption of the anterolateral aspect of the right optic globe. The lens is anterior to the optic globe proper by several mm. The optic globe is filled with attenuating substance most likely hemorrhage. Although there is patient motion, no definite orbital fracture is identified. Oral cavity: Torus palatinus is present. Bones/joints: Unremarkable. No acute fracture. Soft tissues: Unremarkable. Vasculature: Calcification of carotid siphons. IMPRESSION: 1. Acute disruption of the anterolateral aspect of the right optic globe. The lens is anterior to the optic globe proper by several mm. The optic globe is filled with attenuating substance most likely hemorrhage. 2. Although there is patient motion, no definite orbital fracture is identified. 3. No evidence for acute intracranial hemorrhage, midline shift or mass effect. 4. Cortical atrophy and chronic periventricular microangiopathy.
--- NOTE | 2021-11-13 19:37 | CT_ITS ---
PROCEDURE INFORMATION: Exam: CT Cervical Spine Without Contrast Exam date and time: 11/13/2021 7:47 PM Age: 81 years old Clinical indication: Injury or trauma; Fall; Blunt trauma TECHNIQUE: Imaging protocol: Computed tomography images of the cervical spine without contrast. Radiation optimization: All CT scans at this facility use at least one of these dose optimization techniques: automated exposure control; mA and/or kV adjustment per patient size (includes targeted exams where dose is matched to clinical indication); or iterative reconstruction. COMPARISON: CT CERVICAL SPINE WO CON 07/17/2020 11:46 AM FINDINGS: Bones/joints: Patient motion and artifact at the level of the dens on the sagittal views makes it impossible to exclude nondisplaced fracture in that distribution. There is no evidence to confirm fracture on the axial or coronal reconstructions. There are a few mm of anterior spondylolisthesis of C5 and C6. No evidence of fracture. Rotoscoliosis. Cortical atrophy and chronic periventricular microangiopathy of brain parenchyma. Diffuse bone demineralization. Discs/Spinal canal/Neural foramina: Uncovertebral hypertrophy and degenerative facet arthropathy result in multilevel foraminal stenosis within the cervical spine. No severe central canal stenosis is identified. Lungs: Slight scarring in the lung apices. Vasculature: Calcifications of the regional arteries. Soft tissues: Unremarkable. IMPRESSION: 1. Patient motion and artifact at the level of the dens on the sagittal views makes it impossible to exclude nondisplaced fracture in that distribution. There is no evidence to confirm fracture on the axial or coronal reconstructions. 2. Grade 1 anterior spondylolisthesis of C5 and C6 appears to be on the basis of chronic degenerative disc and facet disease. 3. Rotoscoliosis. 4. Uncovertebral hypertrophy and degenerative facet arthropathy result in multilevel foraminal stenosis within the cervical spine. 5. No severe central canal stenosis is identified. 6. Cortical atrophy and chronic periventricular microangiopathy of brain parenchyma. 7. Atherosclerotic vascular disease. 8. Osteopenia.
--- NOTE | 2021-11-13 19:45 | XR_ITS ---
PROCEDURE INFORMATION: Exam: XR Left Hand Exam date and time: 11/13/2021 7:52 PM Age: 81 years old Clinical indication: Injury or trauma; Fall; Blunt trauma (contusions or hematomas); Hand; Left TECHNIQUE: Imaging protocol: XR Left hand. Views: 3 or more views. COMPARISON: No relevant prior studies available. FINDINGS: Bones/joints: Acute fracture of the left 4th proximal phalanx with dorsal-ulnar angulation the distal fragment relative to proximal. No evidence of intra-articular extension. Joint alignment is well maintained. No other acute fractures in the left hand. Soft tissues: Soft tissue edema noted. IMPRESSION: Acute fracture of the left 4th proximal phalanx, as detailed above.
--- NOTE | 2021-11-13 19:45 | PC.NURSE ---
Rings removed from left ring finger, placed in bag, and given to daughter.
--- NOTE | 2021-11-13 19:46 | XR_ITS ---
PROCEDURE INFORMATION: Exam: XR Chest Exam date and time: 11/13/2021 7:57 PM Age: 81 years old Clinical indication: Injury or trauma; Fall; Blunt trauma (contusions or hematomas) TECHNIQUE: Imaging protocol: XR of the chest. Views: 1 view. COMPARISON: CR XR CHEST PORTABLE 12/13/2020 2:10 PM FINDINGS: Lungs: No acute airspace consolidation. No appreciable pulmonary edema. Pleural spaces: No large pleural effusion. No pneumothorax. Heart/Mediastinum: Cardiomediastinal silouhette is unchanged. Bones/joints: No acute osseous abnormality. Soft tissues: Unremarkable. IMPRESSION: No acute findings.
--- NOTE | 2021-11-13 19:46 | XR_ITS ---
PROCEDURE INFORMATION: Exam: XR Pelvis Exam date and time: 11/13/2021 7:58 PM Age: 81 years old Clinical indication: Injury or trauma; Fall; Blunt trauma (contusions or hematomas); Does not apply; Pelvic region TECHNIQUE: Imaging protocol: XR pelvis. Views: 1 or 2 view. COMPARISON: CR XR HIP RT 2-3V W/PELVIS 04/02/2021 5:09 PM FINDINGS: Limitations: Stool and hypertrophic degenerative changes at the lumbosacral junction limit evaluation of the sacrum. Bones/joints: No acute fracture or malalignment. Pubic symphysis and bilateral sacroiliac joints are congruent. Soft tissues: Unremarkable. IMPRESSION: No acute osseous abnormality in the pelvis within the limits this exam.
--- NOTE | 2021-11-13 19:49 | PC.NURSE ---
Pt gone to RAD
--- NOTE | 2021-11-13 20:13 | ECG_ITS ---
APPROVED REPORT Exam: Resting ECG HR:63 bpm ECG Measurements Heart Rate 63 AXES TX 193 P 83 QRSd 72 QRS 13 QT 384 T 47 QTc 391 Conclusion SINUS RHYTHM WITH OCCASIONAL SUPRAVENTRICULAR PREMATURE COMPLEXES LOW QRS VOLTAGE IN PRECORDIAL LEADS [QRS DEFLECTION < 1.0 mV IN CHEST LEADS] POSSIBLE ANTERIOR MYOCARDIAL INFARCTION , PROBABLY OLD [30 ms Q WAVE IN V3/V4, OR R < 0.2 mV IN V4] BORDERLINE ECG UNCONFIRMED REPORT Electronically signed by : Issa Yo MD 11/14/2021 21:23:29
--- NOTE | 2021-11-13 20:20 | HMH.EDFALL ---
ED Disposition Clinical Impression: Orbit trauma, right Qualifiers: Encounter type: initial encounter Qualified Code(s): S05.91XA - Unspecified injury of right eye and orbit, initial encounter Hand fracture, left Qualifiers: Encounter type: initial encounter Fracture type: closed Qualified Code(s): S62.92XA - Unspecified fracture of left wrist and hand, initial encounter for closed fracture Concussion without loss of consciousness Qualifiers: Encounter type: initial encounter Qualified Code(s): S06.0X0A - Concussion without loss of consciousness, initial encounter Fall Qualifiers: Encounter type: initial encounter Qualified Code(s): W19.XXXA - Unspecified fall, initial encounter Disposition: Xfer Short-Term Hosp Condition on Discharge: Serious Referrals: Abraham Redding [Primary Care Provider] - - Critical Care Critical Care Time: No Attestation: On 11/13/21, the high probability of a clinically significant, sudden or life threatening deterioration of the following system(s) required my full and direct attention, intervention and personal management. The time I documented below is in addition to time spent performing reported procedures but includes the following listed in this critical care notation. Medical Decision Making - Medical Records Medical records reviewed: Yes: I reviewed the patient's medical records. - Samuel Inquiry Pt receiving controlled substance: No Vital Signs: 11/13/21 19:33 11/13/21 20:32 Temperature 98.2 F Temperature Source Oral Pulse Rate 60 Pulse Rate [Apical] 63 Respiratory Rate 18 Blood Pressure 149/53 H Blood Pressure [Right Arm] 148/52 H Blood Pressure Mean 85 Blood Pressure Mean [Right Arm] 84 Blood Pressure Source [Right Arm] Automatic Cuff Blood Pressure Position [Right Arm] Sitting 02 Sat by Pulse Oximetry 94 L 97 Oxygen Delivery Method Room Air - Lab Data Lab results reviewed: Yes: I reviewed the patient's lab results. Orders (Tests/Meds): ORDERS Category Date Time Status Complete Blood Count Auto Diff Stat Lab 11/13/21 20:22 Received Comprehensive Metabolic Panel Stat Lab 11/13/21 20:22 Received PTT [Activated Partial Thrombo Time] Stat Lab 11/13/21 20:22 Received Rapid PCR Covid and Flu A/B Stat Lab 11/13/21 20:29 Received Trop I [Troponin I] Stat Lab 11/13/21 20:22 Received Troponin I Q3H Lab 11/13/21 22:45 Ordered Troponin I Q3H Lab 11/14/21 01:45 Ordered - Radiology Data #1 Image(s): Chest, Hand, Pelvis Image Reviewed: Yes I have reviewed radiologist's interpretation Preliminary Findings: Abnormal - CT Data CT Scan: Head, C-Spine, Other (facial) Time Received: 20:[address] Reviewed: Yes: I have viewed the radiologist's interpretation Preliminary Findings: Abnormal (rt global injury) - ECG Data Tracing #1 Normal Sinus Rhythm: Yes Ischemic changes: non-specific ST-T wave changes - Physician Consults Physician Consulted: cecilia Reason -: Transfer to another facilty Medical Decision Narrative: fall with rt orbit trauma with hyphema and fx lt hand - transfer to for trauma Fall HPI - General Chief Complaint: Fall Stated Complaint: Fall Time Seen by Provider: 11/13/21 20:00 Mode of Arrival: EMS Source of Information: Patient, EMS, Medical Record Limitations: No Limitations Description of Symptoms (Recalled from ER Triage Doc. by RN): Patient states she was attempting to pull her pants up in the restroom and lost her balance and fell into her shower wall, which was hard tile. States she caught herself with her right hand but appears to have fractured her left ring finger and her right lower eye lid is filled with blood with a small laceration under her right eye. - History of Present Illness HPI Narrative: fell in bathroom with rt facial /head trauma but no loc occurred but has lt hand injury and rt eye injury -pt on xarelto for hx of dvt and took last dose at noon complaint: fall Onset (a
--- NOTE | 2021-11-13 20:23 | PC.NURSE ---
Pt back from RAD
[2021-11-13 20:38] LABS: Basophils # 0.1 K/mm3 (0-0.2); Basophils % 1.6 % (0.1-2.0); Eosinophils # 0.4 K/mm3 (0.0-0.4); Eosinophils % 6.4 % (0.1-12.0); Hematocrit 32.5 % (37.0-47.0); Hemoglobin 10.2 g/dL (12.2-16.2); Lymphocytes # 0.7 K/mm3 (0.7-4.5); Lymphocytes % 12.4 % (10-50); Mean Corpuscular HGB Conc 31.4 g/dL (31.8-35.4); Mean Corpuscular Hemoglobin 29.1 pg (27.0-31.2); Mean Corpuscular Volume 92.7 fl (81-99); Mean Platelet Volume 10.1 fl (7.4-10.4); Monocytes # 0.4 K/mm3 (0.1-1.0); Monocytes % 7.7 % (1.7-9.3); Neutrophils % 71.9 % (37.0-80.0); Platelet Count 154 K/mm3 (142-424); Red Blood Count 3.51 M/mm3 (4.20-5.40); Red Cell Distribution Width 18.4 % (11.5-17.5); White Blood Count 5.6 K/mm3 (4.8-10.8)
[2021-11-13 20:43] LABS: Alanine Aminotransferase 14 U/L (12-78); Albumin Level 3.5 g/dl (3.5-5.0); Albumin/Globulin Ratio 1.4 (1.1-1.8); Alkaline Phosphatase 134 U/L (38-126); Aspartate Amino Transferase 28 U/L (14-36); Blood Urea Nitrogen 25 mg/dl (7-17); Calcium 8.7 mg/dl (8.4-10.2); Chloride 93 mmol/L (98-107); Creatinine Clearance Estimated 59 mL/min (50-200); Estimated Glomerular Filt Rate 53 ml/min (>60); GFR (African American) 64 ML/MIN (>60); Globulin 2.5 g/dL (1.3-3.2); Glucose 133 mg/dl (74-100); Potassium 4.3 mmoL/L (3.5-5.1); Sodium 141 mmol/L (136-145)
--- NOTE | 2021-11-13 20:43 | PC.NURSE ---
randall on phone with MDs @ this time
[2021-11-13 20:44] LABS: Activated Partial Thrombo Time 32.8 seconds (22.8-30.6)
[2021-11-13 20:44] LABS: Coronavirus 19, PCR Not Detected (NotDetected); Influenza A, PCR Not Detected (NotDetected); Influenza B, PCR Not Detected (NotDetected)
--- NOTE | 2021-11-13 20:44 | PC.NURSE ---
Patients ring had to be manually cut off due to patients finger swelling on left ring finger. Rings were placed in a bag with patient label and placed with daughter who is at bedside.
[2021-11-13 20:55] LABS: Troponin I 0.03 ng/ml (0.00-0.034)
[2021-11-13 20:56] LABS: Anion Gap 11.3 mEq/L (5-15); Bilirubin,Total < 0.1 mg/dl (0.2-1.3); Carbon Dioxide 41 mmol/L (22.0-30.0)
--- NOTE | 2021-11-13 21:35 | PC.NURSE ---
2024-. DILLON Raymond notified Dr. Rangel of critical CO2 41.
== END 2021-11-13 21:59 | disposition short-term general hospital (02) ==
PROVIDERS: Emergency Medicine; Emergency Provider Emergency Medicine; PCP Family Medicine
DX: S05.91XA Unspecified injury of right eye and orbit, initial encounter (principal); S06.0X0A Concussion without loss of consciousness, initial encounter; S62.645A Nondisplaced fracture of proximal phalanx of left ring finger, initial encounter for closed fracture; W01.10XA Fall on same level from slipping, tripping and stumbling with subsequent striking against unspecified object, initial encounter; Y92.012 Bathroom of single-family (private) house as the place of occurrence of the external cause; E11.9 Type 2 diabetes mellitus without complications; I10 Essential (primary) hypertension; I50.9 Heart failure, unspecified; E78.5 Hyperlipidemia, unspecified; K21.9 Gastro-esophageal reflux disease without esophagitis
CPT/HCPCS: 70450; 70486; 71045; 72125; 72170; 73130; 80053; 84484; 85025; 85730; 93005; 96374; 96375; 99284; C9803; J2405; U0003; U0005